=== PATIENT | female | born 1975 | race Caucasian/White ===

== ENCOUNTER 2018-11-06 09:56 | Emergency (ER) | payer SELFPAY ==
[~2018-11-06] VITALS: Ht 167.6 cm; Wt 149.7 kg
[~2018-11-06 09:56] MED LIST: BUTA1TAB55 PO; CLCX100C PO; CYCL10TA9 PO; DIFLUCAN; DULO30CA PO; HEARTBURN MED; HYDR-229 PO; HYDR-2890 PO; HYDR1TAB66 PO; LORA10TA7 PO; METO-354; PARO40TA47 PO; RANI25TA; SULF1TAB38 PO
[2018-11-06] MEDS ORDERED: RX-CYCLOBENZAPRINE 10 MG (FLEXERIL) TAB PPK#3 PO STA (10:59)
[2018-11-06] MEDS ORDERED: predniSONE 20 MG TAB PO ONE (11:00)
[2018-11-06] MEDS ORDERED: KETOROLAC 60 MG/2 ML VIAL IM ONE (11:00)
[2018-11-06] MEDS ORDERED: ORPHENADRINE 60 MG/2 ML (NORFLEX) AMP IM ONE (11:00)
[2018-11-06] MEDS ORDERED: PRD20T PO (11:02)
[2018-11-06] MEDS ORDERED: METH-313 PO (11:02)
--- NOTE | 2018-11-06 11:02 | ED Back Pain ---
General Chief Complaint: Back Problems Stated Complaint: BACK PAIN Nursing Triage Note: TO ROOM PER W/C C/O LOW BACK FOR 2 DAYS OTC MED ARE NOT HELPING Nursing Sepsis Screen: No Definite Risk Source of Information: Patient Exam Limitations: No Limitations History of Present Illness Date Seen by Provider: Nov 06, 2018 Time Seen by Provider: 11:00 Initial Comments To ER with midline nonradiating low back pain. States she has a history of fibromyalgia and degenerative disc disease. Denies any falls or trauma. Pain is worsened by movement. No loss of bowel or bladder control, no fevers or chills, no loss of sensation and genitals. Pain has been present for about 2 days. Location: Lumbar Spine Timing/Duration: 1-2 Days Severity: Moderate Method of Injury: Unknown Modifying Factors: Worse With Movement Associated Symptoms: lower back pain Allergies and Home Medications Allergies Coded Allergies: naproxen (Verified Allergy, Unknown, 07/31/07) Home Medications Methocarbamol 750 Mg Tablet, 750 MG PO Q4H PRN for PAIN-MODERATE Prescribed by: AJIT CRUZ on 11/06/18 110 Prednisone 20 Mg Tab, 40 MG PO DAILY Prescribed by: AJIT CRUZ on 11/06/18 1102 Patient Home Medication List Home Medication List Reviewed: Yes Review of Systems Constitutional: see HPI; No chills, No fever EENTM: see HPI Respiratory: no symptoms reported Cardiovascular: no symptoms reported Genitourinary: no symptoms reported Musculoskeletal: see HPI, back pain Skin: no symptoms reported Psychiatric/Neurological: No Symptoms Reported Past Pobslgn-Pzuflh-Twthwx Hx Patient Social History Alcohol Use: Denies Use Recreational Drug Use: No Smoking Status: Never a Smoker Recent Foreign Travel: No Contact w/Someone Who Travel: No Recent Infectious Disease Expo: No Recent Hopitalizations: Yes (vaginal deliveries) Past Medical History Surgeries: Yes (Therapeutic ) Respiratory: No Cardiac: No Neurological: No Reproductive Disorders: No Gastrointestinal: No Musculoskeletal: Yes Arthritis, Fibromyalgia, Chronic Back Pain Endocrine: Yes (obesity) Psychosocial: Yes Depression Blood Disorders: No Family Medical History No Pertinent Family Hx Physical Exam Vital Signs Vital Signs - First Documented 11/06/18 10:14 Temp 98.9 Pulse 80 Resp 18 B/P (MAP) 105/72 (83) Pulse Ox 98 O2 Delivery Room Air Capillary Refill : Less Than 3 Seconds Height, Weight, BMI Height: 5'6.00" Weight: 330lbs. oz. 149.006293wx; BMI Method:Stated General Appearance: No Apparent Distress, WD/WN, Obese HEENT: PERRL/EOMI, TMs Normal Neck: Full Range of Motion, Normal Inspection Respiratory: No Accessory Muscle Use, No Respiratory Distress Gastrointestinal: Non Tender, Soft Back: Normal Inspection, Vertebral Tenderness Neurologic/Psychiatric: Alert, Oriented x3 Skin: Normal Color, Warm/Dry Progress/Results/Core Measures Results/Orders My Orders Orders - AJIT CRUZ APRN Ketorolac Injection (Toradol Injection) (11/06/18 11:00) Orphenadrine Injection (Norflex Injectio (11/06/18 11:00) Prednisone Tablet (Deltasone Tablet) (11/06/18 11:00) Rx-Cyclobenzaprine Tablet (Rx-Flexeril T (11/06/18 10:59) Vital Signs/I&O 11/06/18 10:14 Temp 98.9 Pulse 80 Resp 18 B/P (MAP) 105/72 (83) Pulse Ox 98 O2 Delivery Room Air Blood Pressure Mean: 83 Departure Impression Primary Impression: Back pain Qualified Codes: M54.5 - Low back pain Disposition: 01 HOME, SELF-CARE Condition: Stable Departure-Patient Inst. Decision time for Depature: 11:01 Referrals: [facility] (PCP) Primary Care Physician Patient Instructions: Low Back Pain (DC) Add. Discharge Instructions: 1. Warm compresses to her low back 2. Follow-up with your doctor next week All discharge instructions reviewed with patient and/or family. Voiced understanding. Scripts Methocarbamol (Robaxin-750) 750 Mg Tablet 750 MG PO Q4H PRN for PAIN-MODERATE, #20 TAB Prov: AJIT CRUZ APRN 11/06/18 Prednisone (Prednisone) 20 Mg Tab 40 MG PO DAILY, #8 TAB Prov: AJIT CRUZ APRN 11/06/18 AJIT CRUZ APRN Nov 06, 2018 11:02
[2018-11-06 11:41] VITALS: BP 105/72
== END 2018-11-06 11:41 | disposition home or self-care (01) ==
LOC: EDUNIT# 09:56 → ER 09:57
DX: M54.5 Low back pain (principal); E66.9 Obesity, unspecified; F32.9 Major depressive disorder, single episode, unspecified; Z88.8 Allergy status to other drugs, medicaments and biological substances; Z79.52 Long term (current) use of systemic steroids; Z68.43 Body mass index [BMI] 50.0-59.9, adult
CPT/HCPCS: 96372; 99284

== ENCOUNTER → 2022-03-07 | Outpatient (CLI) | payer MEDICAID ==
[~2022-03-07] VITALS: Ht 160 cm; Wt 178.2 kg
[~2022-03-07] MED LIST changes: +BUPIVACAINE 0.25% 10 ML (SENSORCAINE) VIAL INJ ONE; +LIDOCAINE 1% INJ 20 ML VIAL INJ ONE; +LIDOCAINE 1% INJ 20 ML VIAL ONE; +METH-313 PO; +PRD20T PO; +methylPREDNISolone 40 MG/ML (DEPO MEDROL) VIAL IA ONE; +methylPREDNISolone 80 MG/ML (DEPO MEDROL) VIAL IA ONE
--- NOTE | 2022-03-07 15:36 | Diagnostic Imaging Report ---
INDICATION: Bilateral knee pain. Patient presents for fluoroscopically assisted bilateral knee steroid injection. DETAILS OF THE PROCEDURE: The patient was brought to the fluoroscopic suite and placed on the table in the supine position. The bilateral knees were prepped and draped in the usual sterile fashion. A small amount of 1% lidocaine was utilized for local anesthesia. A total of 1.5 minutes of fluoroscopic time was utilized. 22-gauge needles were advanced from an anterior approach into both knees. 80 mg of Depo-Medrol with 3 cc of 0.25% bupivacaine was injected into each knee. The needle was removed and hemostasis was obtained. The patient tolerated the procedure well and left the Department in stable condition. IMPRESSION: Successful fluoroscopically assisted steroid injection into the bilateral knees. Dictated by: Dictated on workstation # [id number]
== END ==
LOC: RAD 14:15
PROVIDERS: ATTEND Orthopaedic Surgery
DX: M25.561 Pain in right knee (principal); M25.562 Pain in left knee

== ENCOUNTER → 2022-03-30 | Outpatient (CLI) | payer MEDICAID ==
[~2022-03-30] MED LIST changes: -BUPIVACAINE 0.25% 10 ML (SENSORCAINE) VIAL INJ ONE; -LIDOCAINE 1% INJ 20 ML VIAL INJ ONE; -LIDOCAINE 1% INJ 20 ML VIAL ONE; -methylPREDNISolone 40 MG/ML (DEPO MEDROL) VIAL IA ONE; -methylPREDNISolone 80 MG/ML (DEPO MEDROL) VIAL IA ONE
== END ==
LOC: CARD 15:00
PROVIDERS: ATTEND Internal Medicine Cardiovascular Disease
DX: I11.9 Hypertensive heart disease without heart failure (principal); I25.10 Atherosclerotic heart disease of native coronary artery without angina pectoris
CPT/HCPCS: 93306

== ENCOUNTER 2022-04-20 18:42 | Inpatient (IN) | payer MEDICAID ==
[~2022-04-20] VITALS: Ht 160 cm; Wt 188.9 kg
[2022-04-20] MEDS ORDERED: NITROGLYCERIN 0.4 MG SL TABS BTL 25'S SL PRN (18:45)
[2022-04-20] MEDS ORDERED: HEParin 1000 UNIT/ML (10ML VIAL) FOR BOLUS IV ONE (18:53)
[2022-04-20 18:59] LABS: BASOPHILS # (AUTO) 0.1 10^3/uL (0.0-0.1); BASOPHILS % (AUTO) 0 % (0-10); EOSINOPHILS # (AUTO) 0.3 10^3/uL (0.0-0.3); EOSINOPHILS % (AUTO) 2 % (0-10); HEMATOCRIT 45 % (35-52); HEMOGLOBIN 13.8 g/dL (11.5-16.0); LYMPHOCYTES # (AUTO) 5.4 10^3/uL (1.0-4.0); LYMPHOCYTES % (AUTO) 42 % (12-44); MEAN CORPUSCULAR HEMOGLOBIN 27 pg (25-34); MEAN CORPUSCULAR HGB CONC 31 g/dL (32-36); MEAN CORPUSCULAR VOLUME 88 fL (80-99); MONOCYTES % (AUTO) 8 % (0-12); NEUTROPHILS # (AUTO) 5.9 10^3/uL (1.8-7.8); NEUTROPHILS % (AUTO) 47 % (42-75); PLATELET COUNT 293 10^3/uL (130-400); WHITE BLOOD COUNT 12.7 10^3/uL (4.3-11.0)
[2022-04-20] MEDS ORDERED: HEParin DRIP 25000 UNIT/500ML 500 ML IV ONE (19:00)
[2022-04-20] MEDS ORDERED: ONDANSETRON 4 MG/2 ML (SDV) Z0FRAN IVP ONE (19:00)
--- NOTE | 2022-04-20 19:04 | ED Chest Pain ---
General Chief Complaint: Chest Pain Stated Complaint: CHEST PAIN Nursing Triage Note: PT BROUGHT IN BY [facility] FROM [facility] WITH COMPLAINT OF CP. STATES STARTED THIS EVENING AROUND 6 PM. PT GIVEN NITRO AND ASA 324 BY EMS. STATES NITRO MADE HER NAUSEATED. Source: patient, EMS History of Present Illness Date Seen by Provider: Apr 20, 2022 Time Seen by Provider: 18:43 Initial Comments PT ARRIVES VIA EMS FROM [facility] PLACE PT BEGAN HAVING CHEST PAIN ABOUT 1815 WHILE LAYING IN BED RATES PAIN 7/10 AND DESCRIBES PRESSURE AND HEAVINESS AND FEELS LIKE SHE IS SUFFOCATING OR DROWNING. PAIN IS IN CENTER OF CHEST AND DOES NOT RADIATE NOTHING WORSENS OR IMPROVES PAIN C/O SHORTNESS OF BREATH + NAUSEA AND VOMITED X 1 NO SWEATS EMS GAVE 324 MG ASPIRIN, AND NTG X 1 NO RELIEF OF PAIN, AND STATES NAUSEA INCREASED WITH NTG PT STATES SHE HAS HAD SIMILAR PAIN, AND WAS DX WITH AFIB AND CHF IN 12/2018--HAD CARDIAC CATH AT THAT TIME, NO INTERVENTION DENIES HISTORY OF CO. PT HAS HISTORY OF CHF, HTN AND ATRIAL FIBRILLATION AND PT IS MORBIDLY OBESE PT HAS NOT HAD PM MEDICATIONS, TAKES ELIQUIS BID AT [facility] AROUND 1700, BUT VOMITED AFTERWARD PT JUST MOVED HERE IN DECEMBER FROM [place], [place] HAD MOTOR MECHANIC THERE, DR. RAZA HAD FIRST VISIT WITH DR. SULLIVAN TO ESTABLISH CARE ABOUT 2 WEEKS AGO. HAD ECHOCARDIOGRAM 03/30/22 FATHER HAD CO AGE 39 BROTHER ALSO WITH CAD <50 Y.O. PT HAS NOT HAD COVID OR FLU VACCINES PCP: RUBEN GALVAN WITH [facility] MOTOR MECHANIC: DR. SULLIVAN Allergies and Home Medications Allergies Coded Allergies: naproxen (Verified Allergy, Unknown, 07/31/07) Patient Home Medication List Home Medication List Reviewed: Yes Methocarbamol (Robaxin-750) 750 Mg Tablet, 750 MG PO Q4H PRN for PAIN-MODERATE Prescribed by: AJIT CRUZ on 11/06/18 110 Prednisone (Prednisone) 20 Mg Tab, 40 MG PO DAILY Prescribed by: AJIT CRUZ on 11/06/18 1102 Review of Systems Review of Systems Constitutional: no symptoms reported; No diaphoresis EENTM: No Symptoms Reported Respiratory: See HPI, Shortness of Air Cardiovascular: See HPI, Chest Pain; Denies Edema Gastrointestinal: See HPI; Denies Abdominal Pain; Nausea, Vomiting Genitourinary: No Symptoms Reported Musculoskeletal: no symptoms reported Skin: no symptoms reported Psychiatric/Neurological: No Symptoms Reported Endocrine: No Symptoms Reported Hematologic/Lymphatic: No Symptoms Reported Past Kydutez-Dqagiy-Ppwjpb Hx Patient Social History Tobacco Use?: No Use of E-Cig and/or Vaping dev: No Substance use?: No Alcohol Use?: No Pt feels they are or have been: No Immunizations Up To Date Influenza Vaccine Up-to-Date: No; Not Current First/Initial COVID19 Vaccinat: NO Second COVID19 Vaccination Odilon: NO Past Medical History Surgeries: Yes (Therapeutic ) Cardiac, Gallbladder Respiratory: No Cardiac: Yes (CHF) Atrial Fibrillation, Chronic Edema/Swelling, High Cholesterol, Hypertension Neurological: No Reproductive Disorders: No Genitourinary: No Gastrointestinal: No Musculoskeletal: Yes Degenerate Disk Disease, Arthritis, Fibromyalgia, Chronic Back Pain Endocrine: Yes (MORBID OBESITY) HEENT: No Cancer: No Psychosocial: Yes Anxiety, Depression Integumentary: No Blood Disorders: No Family Medical History No Pertinent Family Hx PAST SURGICAL HISTORY: -12/2018--CARDIAC CATH, NO INTERVENTION. DX AFIB AND CHF -09/2012--NORMAL SCREENING COLONOSCOPY BY DR. CHRISTOPHER Physical Exam Vital Signs Vital Signs - First Documented 04/20/22 18:44 Pulse 88 Resp 22 B/P (MAP) 107/70 (82) O2 Delivery Room Air Capillary Refill : Less Than 3 Seconds Height, Weight, BMI Height: 5'6.00" Weight: 330lbs. oz. 149.483787bn; 72.00 BMI Method:Stated General Appearance: No Apparent Distress, WD/WN, Obese (MORBIDLY OBESE) Neck: Normal Inspection Respiratory: Chest Non Tender, Normal Breath Sounds, No Accessory Muscle Use, No Respiratory Distress, Decreased Breath Sounds (IN BASES) Cardiovascular: Regular Rate, Rhythm (FREQUENT PVC'S), Systolic Murmur (FAINT MURMUR), Extra Beats Gastrointestinal: Non Tender, Soft Extremity: Normal Capillary Refill, No Pedal Edema (LEGS ARE VERY LARGE, BUT NO SWELLING FROM MID CALF DOWN TO TOES. MOTOR/SENSORY/VASCULAR INTACT. ), Other (HAS LARGE SCABBED WOUND/ULCER TO LEFT CONCEPCION, NO SIGNS OF INFECTION) Neurologic/Psychiatric: Alert, Oriented x3, No Motor/Sensory Deficits, Normal Mood/Affect, [employer] II-XII Norm as Tested Skin: Normal Color, Warm/Dry Progress/Results/Core Measures Results/Orders Lab Results Laboratory Tests Test 04/20/22 18:50 Range/Units White Blood Count 12.7 H 4.3-11.0 10^3/uL Red Blood Count 5.10 3.80-5.11 10^6/uL Hemoglobin 13.8 11.5-16.0 g/dL Hematocrit 45 35-52 % Mean Corpuscular Volume 88 80-99 fL Mean Corpuscular Hemoglobin 27 25-34 pg Mean Corpuscular Hemoglobin Concent 31 L 32-36 g/dL Red Cell Distribution Width 13.7 10.0-14.5 % Platelet Count 293 130-400 10^3/uL Mean Platelet Volume 10.0 9.0-12.2 fL Immature Granulocyte % (Auto) 1 % Neutrophils (%) (Auto) 47 42-75 % Lymphocytes (%) (Auto) 42 12-44 % Monocytes (%) (Auto) 8 0-12 % Eosinophils (%) (Auto) 2 0-10 % Basophils (%) (Auto) 0 0-10 % Neutrophils # (Auto) 5.9 1.8-7.8 10^3/uL Lymphocytes # (Auto) 5.4 H 1.0-4.0 10^3/uL Monocytes # (Auto) 1.0 0.0-1.0 10^3/uL Eosinophils # (Auto) 0.3 0.0-0.3 10^3/uL Basophils # (Auto) 0.1 0.0-0.1 10^3/uL Immature Granulocyte # (Auto) 0.1 0.0-0.1 10^3/uL Prothrombin Time 13.4 12.2-14.7 SEC INR Comment 1.0 0.8-1.4 Activated Partial Thromboplast Time 27 24-35 SEC D-Dimer 0.40 0.00-0.49 UG/ML Sodium Level 140 135-145 MMOL/L Potassium Level 4.2 3.6-5.0 MMOL/L Chloride Level 108 H 98-107 MMOL/L Carbon Dioxide Level 17 L 21-32 MMOL/L Anion Gap 15 H 5-14 MMOL/L Blood Urea Nitrogen 20 H 7-18 MG/DL Creatinine 1.01 0.60-1.30 MG/DL Estimat Glomerular Filtration Rate 69 BUN/Creatinine Ratio 20 Glucose Level 136 H 70-105 MG/DL Calcium Level 9.2 8.5-10.1 MG/DL Corrected Calcium 9.3 8.5-10.1 MG/DL Magnesium Level 2.4 1.6-2.4 MG/DL Total Bilirubin 0.3 0.1-1.0 MG/DL Aspartate Amino Transf (AST/SGOT) 12 5-34 U/L Alanine Aminotransferase (ALT/SGPT) 17 0-55 U/L Alkaline Phosphatase 100 40-136 U/L Total Creatine Kinase 69 29-168 U/L Creatine Kinase MB 1.2 <6.6 NG/ML Myoglobin 60.1 10.0-92.0 NG/ML Troponin I < 0.028 <0.028 NG/ML B-Type Natriuretic Peptide < 10.0 <100.0 PG/ML Total Protein 7.4 6.4-8.2 GM/DL Albumin 3.9 3.2-4.5 GM/DL Amylase Level 31 25-125 U/L Lipase 36 8-78 U/L Serum Test, Qualitative NEGATIVE NEGATIVE My Orders Orders - BARBIE ANN DO Cbc With Automated Diff (04/20/22 18:44) Magnesium (04/20/22 18:44) Chest 1 View, Ap/Pa Only (04/20/22 18:44) Ekg Tracing (04/20/22 18:44) Comprehensive Metabolic Panel (04/20/22 18:44) Myoglobin Serum (04/20/22 18:44) Protime With Inr (04/20/22 18:44) Partial Thromboplastin Time (04/20/22 18:44) O2 (04/20/22 18:44) Monitor-Rhythm Ecg Trace Only (04/20/22 18:44) Ed Iv/Invasive Line Start (04/20/22 18:44) Creatine Kinase (04/20/22 18:44) Creatine Kinase Mb (04/20/22 18:44) Lipase (04/20/22 18:44) Amylase (04/20/22 18:44) Bnp Leon (04/20/22 18:44) Fibrin Degradation Products (04/20/22 18:44) Troponin I Leon (04/20/22 18:44) Nitroglycerin 0.4 Mg Btl 25's (Nitrostat (04/20/22 18:45) Hcg,Qualitative Serum (04/20/22 18:44) Ondansetron Injection (Zofran Injectio (04/20/22 19:00) Ekg Tracing (04/20/22 18:50) Catheter(Urinary) Insert & Ass 03,15 (04/20/22 18:50) Heparin Drip 92716 Unit/500ml (Heparin (04/20/22 19:00) Heparin (Bolus Per Protocol) (Heparin (B (04/20/22 18:53) Covid 19 Inhouse Test (04/20/22 18:53) Influenza A And B By Pcr (04/20/22 18:53) Isolation Central Supply Req (04/20/22 18:53) Medications Given in ED Current Medications Medications Dose Ordered Sig/Susan Route Start Time Stop Time Status Last Admin Dose Admin Heparin Sodium (Porcine) HEPARIN BOLUS ACS PROTOC... 1853 ONCE IV 04/20/22 18:53 04/20/22 18:55 DC 04/20/22 18:57 5,000 UNIT Vital Signs/I&O 04/20/22 18:44 Pulse 88 Resp 22 B/P (MAP) 107/70 (82) O2 Delivery Room Air Blood Pressure Mean: 82 Progress Progress Note : Progress Note GIVEN ZOFRAN GIVEN HEPARIN BOLUS AND PLACED ON HEPARIN DRIP GIVEN MORPHINE FOR PAIN COVID AND FLU TESTING DONE. NO DETERIORATION IN PT'S CONDITION DURING ER STAY Initial ECG Impression Date: Apr 20, 2022 Initial ECG Impression Time: 18:48 Initial ECG Rate: 88 Initial ECG Rhythm: Normal Sinus (MULTIFOCAL PVC'S) Initial ECG Impression: Acute CO (INFERIOR) Initial ECG Comparisson: No Previous ECG Available EKG : EKG Time: 18:48 Rate: 88 Diagnostic Imaging Comments CXR--NO ACUTE PROCESS, PER RADIOLOGIST REPORT AT Reviewed: Reviewed by Me Departure Communication (Admissions) 1850--SPOKE WITH DR. JEAN, MOTOR MECHANIC, ADVISES TO CALL IN COLORS CUSTODIAN. DERMATOLOGICAL SURGEON NOTIFIED. 1923--DR. JEAN HERE. WANTS REPEAT EKG DONE, BUT UNABLE TO COMPLETE BEFORE PT IS TAKEN TO COLORS CUSTODIAN. 1925--COLORS CUSTODIAN TEAM HERE. Impression Primary Impression: STEMI (ST elevation myocardial infarction) Additional Impressions: History of atrial fibrillation Hx of congestive heart failure HX OF HTN Morbid obesity Disposition: ADMITTED INPATIENT (TO COLORS CUSTODIAN) Condition: Stable Admissions Decision to Admit Reason: Admit from ER (General) (TO COLORS CUSTODIAN) Decision to Admit/Date: Apr 20, 2022 Time/Decision to Admit Time: 18:51 Departure-Patient Inst. Referrals: NO,LOCAL PHYSICIAN (PCP/Family) Primary Care Physician BARBIE ANN DO Apr 20, 2022 19:04
[2022-04-20 19:12] LABS: PROTHROMBIN TIME PATIENT 13.4 SEC (12.2-14.7)
[2022-04-20] MEDS ORDERED: morphine INJ 4 MG/ML 1 ML (VIAL/SYRINGE) IVP ONE (19:15)
[2022-04-20] MEDS ORDERED: morphine INJ 10 MG/ML 1ML (SYR OR VIAL) ONE (19:15)
[2022-04-20] MEDS ORDERED: HEParin (CATH LAB) 2,000 ML IV ONE (19:17)
[2022-04-20] MEDS ORDERED: MIDAZOLAM 5 MG/5 ML (VERSED) VIAL ONE (19:17)
[2022-04-20] MEDS ORDERED: LIDOCAINE 1% INJ 20 ML VIAL ONE (19:17)
[2022-04-20] MEDS ORDERED: HEParin 1000 UNIT/ML (10ML VIAL) FOR BOLUS ONE (19:17)
[2022-04-20] MEDS ORDERED: fentaNYL INJ 100 MCG/2 ML AMP ONE (19:17)
[2022-04-20] MEDS ORDERED: EPTIFIBATIDE BOLUS 20 ML IV ONE (19:18)
[2022-04-20] MEDS ORDERED: EPTIFIBATIDE DRIP 100 ML IV ONE (19:18)
[2022-04-20] MEDS ORDERED: NITRO DRIP 25000 MCG/D5W 0 ML IV ONE (19:18)
[2022-04-20] MEDS ORDERED: NS IV 1000 ML 1,000 ML ONE (19:18)
[2022-04-20 19:22] LABS: ALBUMIN 3.9 GM/DL (3.2-4.5); BILIRUBIN,TOTAL 0.3 MG/DL (0.1-1.0); CALCIUM 9.2 MG/DL (8.5-10.1); CREATININE SERUM 1.01 MG/DL (0.60-1.30); MAGNESIUM 2.4 MG/DL (1.6-2.4); POTASSIUM 4.2 MMOL/L (3.6-5.0); TOTAL PROTEIN 7.4 GM/DL (6.4-8.2)
[2022-04-20 19:29] LABS: CREATINE KINASE MB 1.2 NG/ML (<6.6)
--- NOTE | 2022-04-20 19:29 | Diagnostic Imaging Report ---
Indication: Chest pain Portable chest 7:20 PM Heart size and pulmonary vascularity are normal. Lungs are clear. There are no effusions or pneumothoraces. IMPRESSION: No acute abnormalities in the chest Dictated by: Dictated on workstation # [id number]
[2022-04-20 19:30] VITALS: BP 125/98
--- NOTE | 2022-04-20 19:37 | Cardiology History & Physical ---
HPI-Cardiology Cardiology H&P Date of Admission 04/20/22 Primary Care Physician Attending Physician: Harsh Giron MD, MA [facility] CCDS Attending Physician No,Local Physician Consulting Physician [facility] CC: Chest pain 46 woman with sudden onset of chest pain at approx 6 pm today: midsternal, pressure-like, nonradiating, associated with feeling of anxiety, improved in the ER with iv morphine, not experienced before, w/o radiation. Chronic, exertional shortness of breath. No palp or syncope. Chronic, bilateral leg swelling. No syncope. H/o palpitations previously diagnosed as PAF Review of Systems-Cardiology Review of Systems Constitutional: malaise, tiredness; No weight loss, No weight gain Eyes: No vision change Ears/Nose/Throat: No ear discharge, No nasal drainage, No recent hearing loss Respiratory: As described under HPI Cardiovascular: As described under HPI Gastrointestinal: No diarrhea, No nausea, No vomiting Genitourinary: No dysuria, No hematuria, No urine frequency changes Musculoskeletal: back pain (chronic) Skin: No rash; ulcerations (chronic leg ulcerations) Psychiatric/Neurological: No seizure, No focal weakness, No syncope Hematologic: No bleeding abnormalities EWF-Btbqfq-Bevisl Hx Patient Social History Have you traveled recently?: No Alcohol Use?: No Pt feels they are or have been: No Past Medical History PMH As described under Assessment. Family Medical History Family Medical History: Family h/o early CAD (fathter had AK in late 30s to early 40s) Allergies and Home Medications Allergies Coded Allergies: naproxen (Verified Allergy, Unknown, 07/31/07) Patient Home Medication List Home Medication List Reviewed: Yes Methocarbamol (Robaxin-750) 750 Mg Tablet, 750 MG PO Q4H PRN for PAIN-MODERATE Prescribed by: AJIT CRUZ on 11/06/18 1102 Prednisone (Prednisone) 20 Mg Tab, 40 MG PO DAILY Prescribed by: AJIT CRUZ on 11/06/18 1102 Physical Exam-Cardiology Physical Exam Vital Signs/I&O 04/20/22 04/20/22 18:44 19:21 Pulse 88 Resp 22 B/P (MAP) 107/70 (82) O2 Delivery Room Air Nasal Cannula O2 Flow Rate 2.00 Capillary Refill : Less Than 3 Seconds Constitutional: AAO x 3, well-developed, well-nourished HEENT: EOMI, hearing is well preserved; No xanthelasmas are seen Neck: carotid pulses are 2 + bilaterally Respiratory: No accessory muscle use; other (fair air entry, diminished at the bases) Cardiovascular: regular rate-rhythm, S1 and S2, systolic murmur (soft JAIRO at card base) Gastrointestinal: No tender; soft; No guarding, No rebound; audible bowel sounds Extremities: swelling (moderate, bilat leg edema); No clubbing, No cyanosis Skin: warm/dry, ulcerations (approx 4" tommie, maplike, superficial ulceration on the outer aspect of the L lower leg) Data Review Labs Laboratory Tests 04/20/22 18:50: White Blood Count 12.7H, Red Blood Count 5.10, Hemoglobin 13.8, Hematocrit 45, Mean Corpuscular Volume 88, Mean Corpuscular Hemoglobin 27, Mean Corpuscular Hemoglobin Concent 31L, Red Cell Distribution Width 13.7, Platelet Count 293, Mean Platelet Volume 10.0, Immature Granulocyte % (Auto) 1, Neutrophils (%) (Auto) 47, Lymphocytes (%) (Auto) 42, Monocytes (%) (Auto) 8, Eosinophils (%) (Auto) 2, Basophils (%) (Auto) 0, Neutrophils # (Auto) 5.9, Lymphocytes # (Auto) 5.4H, Monocytes # (Auto) 1.0, Eosinophils # (Auto) 0.3, Basophils # (Auto) 0.1, Immature Granulocyte # (Auto) 0.1, Prothrombin Time 13.4, INR Comment 1.0, Activated Partial Thromboplast Time 27, D-Dimer 0.40, Sodium Level 140, Pota ssium Level 4.2, Chloride Level 108H, Carbon Dioxide Level 17L, Anion Gap 15H, Blood Urea Nitrogen 20H, Creatinine 1.01, Estimat Glomerular Filtration Rate 69, BUN/Creatinine Ratio 20, Glucose Level 136H, Calcium Level 9.2, Corrected Calcium 9.3, Magnesium Level 2.4, Total Bilirubin 0.3, Aspartate Amino Transf (AST/SGOT) 12, Alanine Aminotransferase (ALT/SGPT) 17, Alkaline Phosphatase 100, Total Creatine Kinase 69, Creatine Kinase MB 1.2, Myoglobin 60.1, Troponin I < 0.028, B-Type Natriuretic Peptide < 10.0, Total Protein 7.4, Albumin 3.9, Amylase Level 31, Lipase 36, Serum Test, Qualitative NEGATIVE 04/20/22 19:03: Laboratory Tests 04/20/22 18:50 A/P-Cardiology Assessment/Admission Diagnosis ST elevation in inf leads suggestive of ac inf wall STEMI PAF, by history Hypertension, by history Morbid obesity: BMI approx 73 Hyperlipidemia, treated with statin Admission Status: Inpatient Order (span 2 midnights) Reason for Inpatient Admission: Ac AK Discussion and Recomendations * Given ongoing symptoms, ECG suggestive of acute inf wall STEMI, and multiple cor risk factors, we recommend urgent card cath * I discussed the rationale, procedure, risks, benefits, potential complications, and alternatives of card cath and possible ad hoc cor intervention with her in detail. She understands and provides informed consent * Further recs to be based on the results of card cath Clinical Quality Measures AMI/AHF: ASA po Prior to arrival: Yes HARSH GIRON MD FACP FAC CCDS Apr 20, 2022 19:37
[2022-04-20] MEDS ORDERED: EPTIFIBATIDE BOLUS 10 ML IV ONE (19:59)
[2022-04-20] MEDS ORDERED: CLOPIDOGREL 300 MG (PLAVIX) TABLET PO ONE (20:14)
[2022-04-20] MEDS ORDERED: PATIENT MAY USE OWN MEDS, ALL PO SCH (20:45)
[2022-04-20] MEDS: ONDANSETRON 4 MG/2 ML (SDV) Z0FRAN IVP PRN (21:20)
[2022-04-20] MEDS ORDERED: ATROPINE INJECTION 1 MG/10 ML SYR (ABBOTT) IV ONE (22:30)
[2022-04-20] MEDS ORDERED: fentaNYL INJ 100 MCG/2 ML AMP IVP ONE (22:30)
[2022-04-20] MEDS: meTOprolol TARTRATE 25 MG (LOPRESSOR) TABLET PO SCH (22:45)
[2022-04-20] MEDS: NS IV 1000 ML 1,000 ML IV SCH (22:45)
[2022-04-21] MEDS: ACETAMINOPHEN 325 MG TABLET PO PRN ×3 (01:48→20:24)
--- NOTE | 2022-04-21 04:20 | CARDIAC CATHETERIZATION ---
DATE OF SERVICE: 04/20/2022 The patient is a 46-year-old lady, who developed chest pain about an hour and a half prior to presentation to the emergency room. In the emergency room, she was found to have ST elevation in the inferior leads. Urgent cardiac catheterization was carried out after having obtained an informed consent for cardiac catheterization and possible ad hoc coronary intervention. DESCRIPTION OF PROCEDURE: She was brought to the cardiac catheterization laboratory. Right groin was prepared and draped in the usual sterile fashion. Lidocaine 1% was used for local anesthesia. Modified Seldinger technique was used to advance a 6-Ghanaian sheath in the right femoral artery. The sheath was then exchanged over a wire for a long 6-Ghanaian sheath. This was done because the regular sheath has to traverse a significant amount of subcutaneous tissue to get to the femoral artery and was just barely into the femoral artery. We then used the long sheath to carry out diagnostic angiography and percutaneous intervention. PERCUTANEOUS INTERVENTION TO THE RIGHT CORONARY ARTERY: We used a 6-Ghanaian JR4 guide catheter with side holes to engage the right coronary artery. We advanced a ChoICE floppy wire to the posterior descending branch of the right coronary artery, which was occluded in its mid portion. We were able to cross the lesion with the wire. We carried out balloon angioplasty with 2.0 x 20 mm balloon. This balloon was removed and we then stented the mid and distal posterior descending branch, right up to its terminal bifurcation, but not involving the terminal bifurcation. Stenting was done with Skypoint 2.5 x 12 mm stent. It was deployed at 9 atmospheres. The balloon was then pulled back to the proximal 3/4 of the stent and inflated to 20 atmospheres. This was done because the distal part of the standard segment is slightly small caliber than the proximal part of the standard segment. Subsequent angiography revealed 0% residual stenosis. RAFA flow improved from 0 to 3. Stenosis improved from 100% to 0% residual. CORONARY ANGIOGRAPHY: Following intervention, coronary angiography and intervention to the right coronary, we carried out angiography of the left coronary system with a 6-Ghanaian JL4 catheter. We then used a 6-Ghanaian pigtail catheter to carry out left heart catheterization, left ventricular angiography. At the end of the procedure, the long sheath was exchanged for a short sheath and we carried out angiography of the right femoral artery, but the site of sheath insertion did not appear suitable for device closure. We then replaced the short sheath over a wire for the 6-Ghanaian long sheath again and the sheath was sutured in place and the patient was transferred to the floor for manual sheath removal. HEMODYNAMICS: Left ventricular end-diastolic pressure following coronary angiography was 18 mmHg. There was no significant pressure gradient on pullback across the aortic valve. Ascending aortic pressure was 125/71 with a mean of 90 mmHg. CORONARY ANGIOGRAPHY: Left main coronary artery is free of significant disease. Left anterior descending artery is free of significant disease. Left circumflex artery is nondominant and free of significant disease. Right coronary artery is large and dominant and had a complete occlusion of the mid to distal portion of the posterior descending branch to which successful percutaneous intervention was carried out. Following deployment of Skypoint 2.5 x 12 mm stent to the distal vessel. There is no significant residual stenosis and flow throughout the vessel is normal. LEFT VENTRICULAR ANGIOGRAPHY: Left ventricular angiography was carried out in the right anterior oblique projection. Global left ventricular systolic function is well preserved. Left ventricular ejection fraction is 55% to 60%. CONCLUSIONS: 1. Coronary artery disease primarily consisting of distal occlusion of the posterior descending branch of the RCA to which successful percutaneous intervention was carried out. Following deployment of Skypoint 2.5 x 12 mm stent, there is no significant residual stenosis and the distal flow improved from RAFA 0 to RAFA 3. The rest of the coronary vessels do not exhibit significant disease. 2. Normal global left ventricular systolic function with ejection fraction approximately 55% to 60%. 3. Elevated left ventricular end-diastolic pressure (18 mmHg). DISCUSSION AND RECOMMENDATIONS: She is being admitted to the hospital. Aspirin and Plavix have been added to the regimen. Statin is being continued. Beta blockers will be used as tolerated. Eliquis will be reinitiated tomorrow. Further recommendation will be based on her hospital course. Job ID: [id number] DocumentID: [id number] Dictated Date: 04/20/2022 21:02:54 Instructor Bridge Date: 04/21/2022 04:19:12 Dictated By: TAMMI JEAN MD, MA, FACP, FACC, MTDD
[2022-04-21 05:02] LABS: HEMOGLOBIN 12.9 g/dL (11.5-16.0); WHITE BLOOD COUNT 10.6 10^3/uL (4.3-11.0)
[2022-04-21 05:03] LABS: BASOPHILS % (AUTO) 0 % (0-10); EOSINOPHILS # (AUTO) 0.1 10^3/uL (0.0-0.3); EOSINOPHILS % (AUTO) 1 % (0-10); HEMATOCRIT 42 % (35-52); LYMPHOCYTES # (AUTO) 2.2 10^3/uL (1.0-4.0); LYMPHOCYTES % (AUTO) 21 % (12-44); MEAN CORPUSCULAR HEMOGLOBIN 27 pg (25-34); MEAN CORPUSCULAR HGB CONC 31 g/dL (32-36); MEAN CORPUSCULAR VOLUME 88 fL (80-99); MONOCYTES # (AUTO) 0.7 10^3/uL (0.0-1.0); MONOCYTES % (AUTO) 7 % (0-12); NEUTROPHILS # (AUTO) 7.5 10^3/uL (1.8-7.8); NEUTROPHILS % (AUTO) 71 % (42-75); PLATELET COUNT 262 10^3/uL (130-400)
[2022-04-21 05:16] LABS: ALBUMIN 3.6 GM/DL (3.2-4.5); POTASSIUM 4.3 MMOL/L (3.6-5.0)
[2022-04-21 05:17] LABS: CALCIUM 8.8 MG/DL (8.5-10.1)
[2022-04-21 05:19] LABS: TOTAL PROTEIN 6.6 GM/DL (6.4-8.2)
[2022-04-21] MEDS: KCL 20 MEQ TAB (K-DUR) PO SCH (05:19)
[2022-04-21] MEDS: POTASSIUM CL 10MEQ/50ML IVPB 50 ML IV SCH (05:19)
[2022-04-21 05:20] LABS: BILIRUBIN,TOTAL 0.3 MG/DL (0.1-1.0)
[2022-04-21 05:22] LABS: CREATININE SERUM 0.85 MG/DL (0.60-1.30); PHOSPHORUS 3.8 MG/DL (2.3-4.7)
[2022-04-21 05:25] LABS: MAGNESIUM 2.3 MG/DL (1.6-2.4)
[2022-04-21] MEDS: MAGNESIUM 1 GM/100 ML IVPB 100 ML IV SCH (05:28)
[2022-04-21] MEDS: NS IV 1000 ML 1,000 ML IV SCH (05:36)
[2022-04-21] MEDS: meTOprolol TARTRATE 25 MG (LOPRESSOR) TABLET PO SCH ×2 (08:15→20:24)
[2022-04-21] MEDS: CLOPIDOGREL 75 MG (PLAVIX) TABLET PO SCH (08:15)
[2022-04-21] MEDS: APIXABAN 5 MG (ELIQUIS) TABLET PO SCH ×2 (08:15→20:24)
--- NOTE | 2022-04-21 08:22 | Cardiology Progress Note ---
Subjective Date Seen by Provider: Apr 21, 2022 Time Seen by Provider: 08:18 Subjective/Events-last exam Patient was seen at bedside, laying down comfortably, denied any chest pain No shortness of breath, having wound on her left leg. Review of Systems General: No Chills, No Night Sweats, No Fatigue, No Malaise, No Appetite, No Other HEENT: No Head Aches, No Visual Changes, No Eye Pain, No Ear Pain, No Dysphasia, No Sinus Congestion, No Post Nasal Drip, No Sore Throat, No Other Pulmonary: No Dyspnea, No Cough, No Pleuritic Chest Pain, No Other Cardiovascular: No: Chest Pain, Palpitations, Orthopnea, Paroxysmal Noc. Dys pnea, Edema, Lt Headedness, Other Objective-Cardiology Exam Last Set of Vital Signs Vital Signs 04/21/22 04/21/22 04:03 07:00 Temp 36.5 Pulse 94 Resp 12 B/P (MAP) 130/84 Pulse Ox 99 O2 Delivery Nasal Cannula O2 Flow Rate 2.00 I&O Intake and Output 04/21/22 00:00 Intake Total 0 ml Output Total 325 ml Balance -325 ml Intake Oral 0 ml Output Urine Total 325 ml Daily Weight Change No General: Alert, Oriented X3, Cooperative HEENT: Atraumatic, PERRLA Neck: Supple, No JVD, No Thyromegaly Lungs: Clear to Auscultation, Normal Air Movement Heart: Regular Rate, Normal S1, Normal S2, No Murmurs Abdomen: Normal Bowel Sounds, Soft, No Tenderness, No Hepatosplenomegaly, No Masses Extremities: No Clubbing, No Cyanosis, No Edema, Normal Pulses, No Tenderness/Swelling Skin: No Rashes, No Breakdown, No Significant Lesion Neuro: Normal Gait, Normal Speech, Strength at 5/5 X4 Ext, Normal Tone, Sensation Intact Psych/Mental Status: Mental Status NL, Mood NL Results Lab Laboratory Tests 04/20/22 18:50 04/21/22 04:50 A/P-Cardiology Admission Diagnosis Acute ST elevation myocardial infarction Coronary artery disease Paroxysmal atrial fibrillation Hyperlipidemia Assessment/Plan Coronary artery disease, status post acute ST elevation myocardial infarction involving the inferior wall Emergency cardiac catheterization was carried out by Dr. Giron with stenting of the PDA with excellent results. Continue on aspirin and Plavix Nonhealing wound on the left leg, diminished dorsalis pedis pulse but palpable. Questionable peripheral arterial disease, I will evaluate arterial ultrasound Consult Dr. Frias Paroxysmal atrial fibrillation, currently in sinus rhythm, maintained on Eliquis. Maintained on metoprolol. 2D echo was done on March 30, 2022 showing normal LV size and function, EF 55 to 60%, PA pressure 30 to 35 mmHg Hyperlipidemia, maintained on rosuvastatin 10 mg daily, LDL 164, total cholesterol 133. Continue to monitor Hypertension, tolerating current medication well. Continue to monitor Return to joint disease, bilateral knee pain. BMI 75. Patient is working on weight loss, she has used phentermine in the past which resulted in atrial fibrillation. We discussed weight loss and exercise and possible referral for bariatric surgery. Twelve-lead EKG was done in the office showing sinus rhythm with no significant abnormality, low voltage. Family history of heart disease and hypertension. CORINNE SULLIVAN MD Apr 21, 2022 08:22
[2022-04-21] MEDS: ASPIRIN 81 MG CHEW (CHILDREN'S ASA) PO SCH (09:11)
--- NOTE | 2022-04-21 10:38 | Diagnostic Imaging Report ---
PROCEDURE: US Bilateral lower extremity arterial. TECHNIQUE: Multiple Real-time grayscale images are obtained through both lower extremity arterial systems with color Doppler imaging and color Doppler spectral analysis. INDICATION: Nonhealing wound in the lower extremities. Hypertension. COMPARISON: None available. FINDINGS: The examination is limited due to patient's very large body habitus resulting in suboptimal visualization of numerous arteries. Allowing for this, color Doppler imaging shows patency of the bilateral common femoral, superficial femoral, popliteal, posterior tibial, and dorsalis pedis arteries. There are no elevated peak systolic velocities that would indicate hemodynamically significant stenosis. Above the knee, there are predominantly triphasic waveforms on both sides. Below the knee, monophasic waveforms are present. IMPRESSION: No arterial occlusion or focal hemodynamically significant stenosis in the bilateral lower extremities. Dictated by: Dictated on workstation # [id number]
[2022-04-21] MEDS ORDERED: CHOL12502 PO (10:48)
[2022-04-21] MEDS ORDERED: METO50TA7 PO (10:48)
[2022-04-21] MEDS ORDERED: FURO40TA4 PO (10:48)
[2022-04-21] MEDS ORDERED: POTA-51 PO (10:48)
[2022-04-21] MEDS ORDERED: ROSU10TA28 PO (10:48)
[2022-04-21] MEDS ORDERED: MAGN250T13 PO (10:48)
[2022-04-21] MEDS ORDERED: LISI5TAB20 PO (10:48)
[2022-04-21] MEDS ORDERED: GABA300C PO (10:48)
[2022-04-21] MEDS ORDERED: HYDR-700 PO (10:48)
[2022-04-21] MEDS ORDERED: TOPI50TA13 PO (10:48)
[2022-04-21] MEDS ORDERED: DULO60CA59 PO (10:48)
[2022-04-21] MEDS ORDERED: APIX5TAB PO (10:48)
--- NOTE | 2022-04-21 11:37 | Tele-ICU Progress Note ---
Subjective Date Seen by a Provider: Apr 21, 2022 Time Seen by a Provider: 11:36 Subjective/Events-last exam (Tele-ICU Physician , Progress Note ) Available chart/ vitals / labs / Images reviewed Video assessment done using teleICU camera, rest of exam as per RN Discussed with RN , EXAM PER RN Events overnight : Afebrile FiO2 - I/O = Drips: Pressors: , hemodynamically stable Consultants: Hospital course: (04/20) 46y/F in with stemi, s/p CCL , stent x1 RCA A/P stemi, s/p CCL , stent x1 RCA -2D echo was done on March 30, 2022 showing normal LV size and function, EF 55 to 60%, PA pressure 30 to 35 mmHg PAF - in sinus -maintained on Eliquis. Leg wound - as per wound care MD , arterial pending - off anbx BMI 75 VTE Prophylaxis: eliquis Stress Ulcer Prophylaxis: na Plans in collaboration with bedside consultants and IM MDs. Discussed with RN to reach out if any questions or concerns A total of 22 minutes of critical care time was devoted to this patient today, required to treat and/or prevent further deterioration of critical care condition ( as above) . Sepsis Event Evaluation Height, Weight, BMI Height: 5'6.00" Weight: 330lbs. oz. 149.657110ml; 75.82 BMI Method:Stated Exam Exam Patient acknowledged, consented, and participated in this virtual visit which was conducted using real time audio/video Vital Signs Date Time Temp Pulse Resp B/P (MAP) Pulse Ox O2 Delivery O2 Flow Rate FiO2 04/21/22 11:00 88 19 136/72 93 Nasal Cannula 2.00 04/21/22 10:00 91 18 129/93 94 Nasal Cannula 2.00 04/21/22 09:00 97 20 129/71 91 Nasal Cannula 2.00 04/21/22 08:10 98 Room Air 04/21/22 08:00 94 22 118/84 96 Nasal Cannula 2.00 04/21/22 08:00 36.3 04/21/22 07:00 94 04/21/22 07:00 94 12 130/84 99 Nasal Cannula 2.00 04/21/22 06:00 89 20 157/95 94 Nasal Cannula 2.00 04/21/22 05:00 82 19 152/76 94 Nasal Cannula 2.00 04/21/22 04:03 36.5 04/21/22 04:00 Nasal Cannula 2.00 04/21/22 04:00 85 20 165/97 97 Nasal Cannula 2.00 04/21/22 03:00 89 15 175/104 96 Nasal Cannula 2.00 04/21/22 02:00 88 18 155/89 98 Nasal Cannula 2.00 04/21/22 01:00 81 04/21/22 01:00 81 20 127/82 99 Nasal Cannula 2.00 04/21/22 00:00 82 17 116/81 99 Nasal Cannula 2.00 04/21/22 00:00 Nasal Cannula 2.00 04/20/22 23:54 36.2 04/20/22 23:00 84 15 136/85 100 Nasal Cannula 2.00 04/20/22 22:30 92 16 134/93 99 Nasal Cannula 2.00 04/20/22 22:00 85 16 119/68 99 Nasal Cannula 2.00 04/20/22 21:45 84 19 134/80 99 Nasal Cannula 2.00 04/20/22 21:30 84 18 120/82 100 Nasal Cannula 2.00 04/20/22 21:15 85 18 115/80 98 Nasal Cannula 2.00 04/20/22 21:00 83 24 80/63 97 Nasal Cannula 2.00 04/20/22 20:55 86 04/20/22 20:55 35.9 04/20/22 20:52 95 Nasal Cannula 2.00 04/20/22 19:30 88 15 125/98 94 Nasal Cannula 2.00 04/20/22 19:21 Nasal Cannula 2.00 04/20/22 18:44 88 22 107/70 (82) Room Air I & O 04/21/22 07:00 Intake Total 250 ml Output Total 1050 ml Balance -800 ml Height & Weight Height: 5'6.00" Weight: 330lbs. oz. 149.561587za; 75.82 BMI Method:Stated General Appearance: No Apparent Distress, WD/WN, Obese (MORBIDLY OBESE) Neck: Normal Inspection Respiratory: Chest Non Tender, Normal Breath Sounds, No Accessory Muscle Use, No Respiratory Distress, Decreased Breath Sounds (IN BASES) Cardiovascular: Regular Rate, Rhythm (FREQUENT PVC'S), Systolic Murmur (FAINT MURMUR), Extra Beats Capillary Refill: Less Than 3 Seconds Extremity: Normal Capillary Refill, No Pedal Edema (LEGS ARE VERY LARGE, BUT NO SWELLING FROM MID CALF DOWN TO TOES. MOTOR/SENSORY/VASCULAR INTACT. ), Other (HAS LARGE SCABBED WOUND/ULCER TO LEFT CONCEPCION, NO SIGNS OF INFECTION) Neurologic/Psychiatric: Alert, Oriented x3, No Motor/Sensory Deficits, Normal Mood/Affect, kitchen bath designer II-XII Norm as Tested Skin: Normal Color, Warm/Dry Results Lab Laboratory Tests 04/20/22 18:50 04/21/22 04:50 Assessment/Plan Assessment/Plan ` TARAH MADRID MD Apr 21, 2022 11:36
--- NOTE | 2022-04-21 11:55 | Tele-ICU Progress Note ---
Subjective Date Seen by a Provider: Apr 21, 2022 Time Seen by a Provider: 11:54 Subjective/Events-last exam (Tele-ICU Physician , Progress Note ) Available chart/ vitals / labs / Images reviewed Video assessment done using teleICU camera, rest of exam as per RN Discussed with RN , EXAM PER RN Events overnight : Afebrile FiO2 - I/O = Drips: Pressors: , hemodynamically stable Consultants: Hospital course: (04/20) 46y/F in with stemi, s/p CCL , stent x1 RCA A/P stemi, s/p CCL , stent x1 RCA -2D echo was done on March 30, 2022 showing normal LV size and function, EF 55 to 60%, PA pressure 30 to 35 mmHg PAF - in sinus -maintained on Eliquis. Leg wound - as per wound care MD , arterial pending - off anbx BMI 75 - monitor for hypoxix at night - ? at risk for OHS/GURVINDER VTE Prophylaxis: eliquis Stress Ulcer Prophylaxis: na Plans in collaboration with bedside consultants and IM MDs. Discussed with RN to reach out if any questions or concerns A total of 22 minutes of critical care time was devoted to this patient today, required to treat and/or prevent further deterioration of critical care condition ( as above) . Sepsis Event Evaluation Height, Weight, BMI Height: 5'6.00" Weight: 330lbs. oz. 149.236380iy; 75.82 BMI Method:Stated Exam Exam Patient acknowledged, consented, and participated in this virtual visit which was conducted using real time audio/video Vital Signs Date Time Temp Pulse Resp B/P (MAP) Pulse Ox O2 Delivery O2 Flow Rate FiO2 04/21/22 11:00 88 19 136/72 93 Nasal Cannula 2.00 04/21/22 10:00 91 18 129/93 94 Nasal Cannula 2.00 04/21/22 09:00 97 20 129/71 91 Nasal Cannula 2.00 04/21/22 08:10 98 Room Air 04/21/22 08:00 94 22 118/84 96 Nasal Cannula 2.00 04/21/22 08:00 36.3 04/21/22 07:00 94 04/21/22 07:00 94 12 130/84 99 Nasal Cannula 2.00 04/21/22 06:00 89 20 157/95 94 Nasal Cannula 2.00 04/21/22 05:00 82 19 152/76 94 Nasal Cannula 2.00 04/21/22 04:03 36.5 04/21/22 04:00 Nasal Cannula 2.00 04/21/22 04:00 85 20 165/97 97 Nasal Cannula 2.00 04/21/22 03:00 89 15 175/104 96 Nasal Cannula 2.00 04/21/22 02:00 88 18 155/89 98 Nasal Cannula 2.00 04/21/22 01:00 81 04/21/22 01:00 81 20 127/82 99 Nasal Cannula 2.00 04/21/22 00:00 82 17 116/81 99 Nasal Cannula 2.00 04/21/22 00:00 Nasal Cannula 2.00 04/20/22 23:54 36.2 04/20/22 23:00 84 15 136/85 100 Nasal Cannula 2.00 04/20/22 22:30 92 16 134/93 99 Nasal Cannula 2.00 04/20/22 22:00 85 16 119/68 99 Nasal Cannula 2.00 04/20/22 21:45 84 19 134/80 99 Nasal Cannula 2.00 04/20/22 21:30 84 18 120/82 100 Nasal Cannula 2.00 04/20/22 21:15 85 18 115/80 98 Nasal Cannula 2.00 04/20/22 21:00 83 24 80/63 97 Nasal Cannula 2.00 04/20/22 20:55 86 04/20/22 20:55 35.9 04/20/22 20:52 95 Nasal Cannula 2.00 04/20/22 19:30 88 15 125/98 94 Nasal Cannula 2.00 04/20/22 19:21 Nasal Cannula 2.00 04/20/22 18:44 88 22 107/70 (82) Room Air I & O 04/21/22 07:00 Intake Total 250 ml Output Total 1050 ml Balance -800 ml Height & Weight Height: 5'6.00" Weight: 330lbs. oz. 149.771461gk; 75.82 BMI Method:Stated General Appearance: No Apparent Distress, WD/WN, Obese Neck: Normal Inspection Respiratory: Chest Non Tender, Normal Breath Sounds, No Accessory Muscle Use, No Respiratory Distress, Decreased Breath Sounds Cardiovascular: Regular Rate, Rhythm, Systolic Murmur, Extra Beats Capillary Refill: Less Than 3 Seconds Extremity: Normal Capillary Refill, No Pedal Edema, Other Neurologic/Psychiatric: Alert, Oriented x3, No Motor/Sensory Deficits, Normal Mood/Affect, doctor of nursing practice II-XII Norm as Tested Skin: Normal Color, Warm/Dry Results Lab Laboratory Tests 04/20/22 18:50 04/21/22 04:50 Assessment/Plan Assessment/Plan ` TARAH MADRID MD Apr 21, 2022 11:55
--- NOTE | 2022-04-21 13:09 | Wound Care Assessment ---
Wound Care Assessment Date Seen by Provider: Apr 21, 2022 Time Seen by Provider: 11:30 Chief Complaint Ulcer Left anterior tibia HPI This pleasant 46 year old patient was admitted to the hospital with STEMI. She did have cath with stenting last night. She notes that she has been struggling with ulceration to L. anterior tibia for several weeks. There is an arterial workup for this area in progress (it does look suspicious for possible arterial etiology). She is massively obese and is in a nursing facility at a young age due to fibromyalgia, immobility and "severe incontinence". She reports urine soiling her leg wound repeatedly. She does have some edema in the periwound but this is associated with erythema. I do think a small area of cellulitis is likely. 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 Labs are reassuring and she does not have a h/o DM2. Lower extremities are warm with palpable DP pulses. Her ulcer is with stable eschar. Some of this is easily removed revealing a partial thickness ulcer underlying. Plan to soften eschar with Xeroform and gentle scrub with daily cleaning. Smoking Status: Never a Smoker Recreational Drug Use: No Alcohol Use: Denies Use Review of Systems General: Other (Massive obesity) Genitourinary: Incontinence Musculoskeletal: other (Immobility) Neurological: Weakness Exam Vital Signs Date Time Temp Pulse Resp B/P (MAP) Pulse Ox O2 Delivery O2 Flow Rate FiO2 04/21/22 12:00 97 12 127/73 97 Nasal Cannula 2.00 04/21/22 08:00 36.3 Capillary Refill : Less Than 3 Seconds General Appearance: no apparent distress, obese HEENT: other (normal hearing) Neck: full range of motion Respiratory: no respiratory distress, no accessory muscle use Extremities: other (trace pedal edema only) Neurologic/Psychiatric: alert, normal mood/affect, oriented x 3 Skin: normal color, warm/dry Wound assessment: Approximately 6x4x0.1cm partial thickness ulceration. The epithelialization is medium, there is no tunneling or undermining. Drainage is small and serous, Granulation is small and pink, necrotic is large and eschar. The margins are flat. There is erythema, induration and edema in the periwound extending approximately 5-6 cm in all directions. Results Laboratory Tests 04/20/22 18:50: White Blood Count 12.7H, Red Blood Count 5.10, Hemoglobin 13.8, Hematocrit 45, Mean Corpuscular Volume 88, Mean Corpuscular Hemoglobin 27, Mean Corpuscular Hemoglobin Concent 31L, Red Cell Distribution Width 13.7, Platelet Count 293, Mean Platelet Volume 10.0, Immature Granulocyte % (Auto) 1, Neutrophils (%) (Au to) 47, Lymphocytes (%) (Auto) 42, Monocytes (%) (Auto) 8, Eosinophils (%) (Auto) 2, Basophils (%) (Auto) 0, Neutrophils # (Auto) 5.9, Lymphocytes # (Auto) 5.4H, Monocytes # (Auto) 1.0, Eosinophils # (Auto) 0.3, Basophils # (Auto) 0.1, Immature Granulocyte # (Auto) 0.1, Prothrombin Time 13.4, INR Comment 1.0, Activated Partial Thromboplast Time 27, D-Dimer 0.40, Sodium Level 140, Potassium Level 4.2, Chloride Level 108H, Carbon Dioxide Level 17L, Anion Gap 15H, Blood Urea Nitrogen 20H, Creatinine 1.01, Estimat Glomerular Filtration Rate 69, BUN/Creatinine Ratio 20, Glucose Level 136H, Calcium Level 9.2, Corrected Calcium 9.3, Magnesium Level 2.4, Total Bilirubin 0.3, Aspartate Amino Transf (AST/SGOT) 12, Alanine Aminotransferase (ALT/SGPT) 17, Alkaline Phospha tase 100, Total Creatine Kinase 69, Creatine Kinase MB 1.2, Myoglobin 60.1, Troponin I < 0.028, B-Type Natriuretic Peptide < 10.0, Total Protein 7.4, Albumin 3.9, Amylase Level 31, Lipase 36, Serum Test, Qualitative NEGATIVE 04/20/22 19:03: Influenza Type A (RT-PCR) Not Detected, Influenza Type B (RT-PCR) Not Detected, SARS-CoV-2 RNA (RT-PCR) Not Detected 04/21/22 04:50: White Blood Count 10.6, Red Blood Count 4.73, Hemoglobin 12.9, Hematocrit 42, Mean Corpuscular Volume 88, Mean Corpuscular Hemoglobin 27, Mean Corpuscular Hemoglobin Concent 31L, Red Cell Distribution Width 13.7, Platelet Count 262, Mean Platelet Volume 10.0, Immature Granulocyte % (Auto) 0, Neutrophils (%) (Auto) 71, Lymphocytes (%) (Auto) 21, Monocytes (%) (Auto) 7, Eosinophils (%) (Auto) 1, Basophils (%) (Auto) 0, Neutrophils # (Auto) 7.5, Lymphocytes # (Auto) 2.2, Monocytes # (Auto) 0.7, Eosinophils # (Auto) 0.1, Basophils # (Auto) 0.0, Immature Granulocyte # (Auto) 0.0, Sodium Level 140, Potassium Level 4.3, Chloride Level 109H, Carbon Dioxide Level 20L, Anion Gap 11, Blood Urea Nitrogen 17, Creatinine 0.85, Estimat Glomerular Filtration Rate 84, BUN/Creatinine Ratio 20, Glucose Level 115H, Calcium Level 8.8, Corrected Calcium 9.1, Magnesium Level 2.3, Total Bilirubin 0.3, Aspartate Amino Transf (AST/SGOT) 32, Alanine Aminotransferase (ALT/SGPT) 19, Alkaline Phosphatase 87, Total Protein 6.6, Albumin 3.6, Phosphorus Level 3.8, Triglycerides Level 117, Cholesterol Level 133, LDL Cholesterol Direct 64, VLDL Cholesterol 23, HDL Cholesterol 44 Assessment/Plan/Dx Assessment: 1. Partial thickness ulcer left anterior tibia (possibly arterial) 2. Cellulitis 3. Massive obesity 4. Immobility with generalized weakness 5. Urinary incontinence Plan: 1. Cleanse daily with vashe and gently scrub to remove eschar. Apply xeroform to wound bed and cover with bordered foam dressing. Change daily. Agree with arterial work up 2. doxycycline 100mg bid for 10d 3. Weight loss is certainly advisable 4. Increased mobility recommended 5. Regular cleaning jose. if wound/dressing becomes soiled ULYSSES THOMPSON MD Apr 21, 2022 13:09
--- NOTE | 2022-04-21 15:20 | Consultation ---
HPI History of Present Illness: 46 yo F that was brought to ER for chest pain that started around 6PM last night. Patient states that she has had similar episode previously and at that time she was diagnosed with atrial fibrillation and CHF. Patient has extensive cardiac history that runs in her family and states that her father had a heart attack at age 38 yo. She states that she was previously cathed when she was diagnosed with CHF and had no intervention at that time. This AM she states that she feels good. Denies any chest pain or shortness of breath. She uses a walker for ambulation at baseline. Source: patient Exam Limitations: no limitations Date seen by provider: Apr 21, 2022 Time Seen by Provider: 10:05 Attending Physician No,Local Physician PCP Admitting Physician: Harsh Giron MD [facility] Attending Physician: Harsh Giron MD [facility] Consult Date of Admission Apr 20, 2022 at 20:45 Home Medications Home Medications Reviewed patient Home Medication Reconciliation performed by pharmacy medication reconciliations customer account technician and/or nursing. Patients Allergies have been reviewed. Allergies Coded Allergies: naproxen (Verified Allergy, Unknown, 07/31/07) NRW-Xtmalh-Dnzdns Hx Patient Social History Living Status: Lives at [facility] Smoking Status: Never a Smoker Recent Hopitalizations: Yes (vaginal deliveries) Alcohol Use?: No Have you traveled recently?: No Immunizations Up To Date Influenza Vaccine Up-to-Date: No; Not Current First/Initial COVID19 Vaccinat: None Second COVID19 Vaccination Odilon: NO Past Medical History Atrial fibrillation on OAC CHF HTN Morbid Obesity Family Medical History Significant Family History: No Pertinent Family Hx Other Significan Family Hx: PAST SURGICAL HISTORY: -12/2018--CARDIAC CATH, NO INTERVENTION. DX AFIB AND CHF -09/2012--NORMAL SCREENING COLONOSCOPY BY DR. CHRISTOPHER Review of Systems (CHC) Constitutional: No chills, No dizziness, No fever; malaise EENTM: no symptoms reported; No nose congestion Respiratory: no symptoms reported; No cough, No dyspnea on exertion, No short of breath Cardiovascular: chest pain; No edema, No palpitations Gastrointestinal: no symptoms reported; No abdominal pain, No constipation, No diarrhea, No nausea, No vomiting Genitourinary: no symptoms reported; No dysuria, No frequency, No hematuria : No Musculoskeletal: back pain, joint pain; No muscle pain Skin: other (LLE leg wound) Psychiatric/Neurological: No Symptoms Reported Reviewed Test Results Reviewed Test Results Lab Laboratory Tests Test 04/20/22 18:50 04/20/22 19:03 04/21/22 04:50 Range/Units White Blood Count 12.7 H 10.6 4.3-11.0 10^3/uL Red Blood Count 5.10 4.73 3.80-5.11 10^6/uL Hemoglobin 13.8 12.9 11.5-16.0 g/dL Hematocrit 45 42 35-52 % Mean Corpuscular Volume 88 88 80-99 fL Mean Corpuscular Hemoglobin 27 27 25-34 pg Mean Corpuscular Hemoglobin Concent 31 L 31 L 32-36 g/dL Red Cell Distribution Width 13.7 13.7 10.0-14.5 % Platelet Count 293 262 130-400 10^3/uL Mean Platelet Volume 10.0 10.0 9.0-12.2 fL Immature Granulocyte % (Auto) 1 0 % Neutrophils (%) (Auto) 47 71 42-75 % Lymphocytes (%) (Auto) 42 21 12-44 % Monocytes (%) (Auto) 8 7 0-12 % Eosinophils (%) (Auto) 2 1 0-10 % Basophils (%) (Auto) 0 0 0-10 % Neutrophils # (Auto) 5.9 7.5 1.8-7.8 10^3/uL Lymphocytes # (Auto) 5.4 H 2.2 1.0-4.0 10^3/uL Monocytes # (Auto) 1.0 0.7 0.0-1.0 10^3/uL Eosinophils # (Auto) 0.3 0.1 0.0-0.3 10^3/uL Basophils # (Auto) 0.1 0.0 0.0-0.1 10^3/uL Immature Granulocyte # (Auto) 0.1 0.0 0.0-0.1 10^3/uL Prothrombin Time 13.4 12.2-14.7 SEC INR Comment 1.0 0.8-1.4 Activated Partial Thromboplast Time 27 24-35 SEC D-Dimer 0.40 0.00-0.49 UG/ML Sodium Level 140 140 135-145 MMOL/L Potassium Level 4.2 4.3 3.6-5.0 MMOL/L Chloride Level 108 H 109 H 98-107 MMOL/L Carbon Dioxide Level 17 L 20 L 21-32 MMOL/L Anion Gap 15 H 11 5-14 MMOL/L Blood Urea Nitrogen 20 H 17 7-18 MG/DL Creatinine 1.01 0.85 0.60-1.30 MG/DL Estimat Glomerular Filtration Rate 69 84 BUN/Creatinine Ratio 20 20 Glucose Level 136 H 115 H 70-105 MG/DL Calcium Level 9.2 8.8 8.5-10.1 MG/DL Corrected Calcium 9.3 9.1 8.5-10.1 MG/DL Magnesium Level 2.4 2.3 1.6-2.4 MG/DL Total Bilirubin 0.3 0.3 0.1-1.0 MG/DL Aspartate Amino Transf (AST/SGOT) 12 32 5-34 U/L Alanine Aminotransferase (ALT/SGPT) 17 19 0-55 U/L Alkaline Phosphatase 100 87 40-136 U/L Total Creatine Kinase 69 29-168 U/L Creatine Kinase MB 1.2 <6.6 NG/ML Myoglobin 60.1 10.0-92.0 NG/ML Troponin I < 0.028 <0.028 NG/ML B-Type Natriuretic Peptide < 10.0 <100.0 PG/ML Total Protein 7.4 6.6 6.4-8.2 GM/DL Albumin 3.9 3.6 3.2-4.5 GM/DL Amylase Level 31 25-125 U/L Lipase 36 8-78 U/L Serum Test, Qualitative NEGATIVE NEGATIVE Influenza Type A (RT-PCR) Not Detected Not Detecte Influenza Type B (RT-PCR) Not Detected Not Detecte SARS-CoV-2 RNA (RT-PCR) Not Detected Not Detecte Phosphorus Level 3.8 2.3-4.7 MG/DL Triglycerides Level 117 <150 MG/DL Cholesterol Level 133 < 200 MG/DL LDL Cholesterol Direct 64 1-129 MG/DL VLDL Cholesterol 23 5-40 MG/DL HDL Cholesterol 44 40-60 MG/DL Physical Exam-(CHC) Physical Exam Vital Signs VS - Last 72 Hours, by Label 04/20/22 04/20/22 04/20/22 04/20/22 18:44 19:21 19:30 20:52 Pulse 88 88 Resp 22 15 B/P (MAP) 107/70 (82) 125/98 Pulse Ox 94 95 O2 Delivery Room Air Nasal Cannula Nasal Cannula Nasal Cannula O2 Flow Rate 2.00 2.00 2.00 04/20/22 04/20/22 04/20/22 04/20/22 20:55 20:55 21:00 21:15 Temp 35.9 Pulse 86 83 85 Resp 24 18 B/P (MAP) 80/63 115/80 Pulse Ox 97 98 O2 Delivery Nasal Cannula Nasal Cannula O2 Flow Rate 2.00 2.00 04/20/22 04/20/22 04/20/22 04/20/22 21:30 21:45 22:00 22:30 Pulse 84 84 85 92 Resp 18 19 16 16 B/P (MAP) 120/82 134/80 119/68 134/93 Pulse Ox 100 99 99 99 O2 Delivery Nasal Cannula Nasal Cannula Nasal Cannula Nasal Cannula O2 Flow Rate 2.00 2.00 2.00 2.00 04/20/22 04/20/22 04/21/22 04/21/22 23:00 23:54 00:00 00:00 Temp 36.2 Pulse 84 82 Resp 15 17 B/P (MAP) 136/85 116/81 Pulse Ox 100 99 O2 Delivery Nasal Cannula Nasal Cannula Nasal Cannula O2 Flow Rate 2.00 2.00 2.00 04/21/22 04/21/22 04/21/22 04/21/22 01:00 01:00 02:00 03:00 Pulse 81 81 88 89 Resp 20 18 15 B/P (MAP) 127/82 155/89 175/104 Pulse Ox 99 98 96 O2 Delivery Nasal Cannula Nasal Cannula Nasal Cannula O2 Flow Rate 2.00 2.00 2.00 04/21/22 04/21/22 04/21/22 04/21/22 04:00 04:00 04:03 05:00 Temp 36.5 Pulse 85 82 Resp 20 19 B/P (MAP) 165/97 152/76 Pulse Ox 97 94 O2 Delivery Nasal Cannula Nasal Cannula Nasal Cannula O2 Flow Rate 2.00 2.00 2.00 04/21/22 04/21/22 04/21/22 04/21/22 06:00 07:00 07:00 08:00 Temp 36.3 Pulse 89 94 94 Resp 20 12 B/P (MAP) 157/95 130/84 Pulse Ox 94 99 O2 Delivery Nasal Cannula Nasal Cannula O2 Flow Rate 2.00 2.00 04/21/22 04/21/22 04/21/22 04/21/22 08:00 08:10 09:00 10:00 Pulse 94 97 91 Resp 22 20 18 B/P (MAP) 118/84 129/71 129/93 Pulse Ox 96 98 91 94 O2 Delivery Nasal Cannula Room Air Nasal Cannula Nasal Cannula O2 Flow Rate 2.00 2.00 2.00 04/21/22 04/21/22 04/21/22 04/21/22 11:00 12:00 12:15 13:00 Pulse 88 97 95 Resp 19 12 B/P (MAP) 136/72 127/73 Pulse Ox 93 97 97 O2 Delivery Nasal Cannula Nasal Cannula Room Air O2 Flow Rate 2.00 2.00 04/21/22 04/21/22 04/21/22 13:00 14:00 15:00 Pulse 96 95 100 Resp 23 17 24 B/P (MAP) 111/61 123/86 131/73 Pulse Ox 94 96 94 O2 Delivery Nasal Cannula Nasal Cannula Nasal Cannula O2 Flow Rate 2.00 2.00 2.00 Capillary Refill : Less Than 3 Seconds General Appearance: WD/WN, no apparent distress, obese (BMI 75) HEENT: PERRL/EOMI Neck: non-tender, full range of motion, supple Respiratory: chest non-tender, lungs clear, normal breath sounds, no respiratory distress, no accessory muscle use Cardiovascular: normal peripheral pulses, regular rate, rhythm, no edema, no murmur Gastrointestinal: normal bowel sounds, non tender, soft Back: normal inspection, no CVA tenderness, no vertebral tenderness Extremities: normal range of motion, non-tender, no pedal edema, no calf tenderness, normal capillary refill, other (LLE leg wound, no signs of secondary infection or cellulitis) Neurologic/Psychiatric: compensation and benefits advisor II-XII nml as tested, alert, normal mood/affect, oriented x 3 Assessment/Plan Assessment/Plan (1) Acute ST elevation myocardial infarction (STEMI) of inferior wall Status: Acute Assessment & Plan: - Cardiology managing, thank you for the consult (2) History of atrial fibrillation Status: Acute Assessment & Plan: - Rate controlled and on OAC (3) Hx of congestive heart failure Status: Acute (4) Morbid obesity Status: Acute Assessment & Plan: - Discussed the importance of weight loss with the patient Clinical Quality Measures AMI/AHF: ASA po Prior to arrival: Yes EDDIE JACINTO MD Apr 21, 2022 15:20
[2022-04-21] MEDS: DOXYCYCLINE 100 MG (VIBRAMYCIN) TABLET PO SCH (20:24)
[2022-04-21] MEDS: ONDANSETRON 4 MG/2 ML (SDV) Z0FRAN IVP PRN (21:30)
[2022-04-22] MEDS ORDERED: MELATONIN 3 MG TABLET PO SCH (01:15)
[2022-04-22 05:22] LABS: BASOPHILS % (AUTO) 0 % (0-10); EOSINOPHILS # (AUTO) 0.2 10^3/uL (0.0-0.3); EOSINOPHILS % (AUTO) 2 % (0-10); HEMATOCRIT 40 % (35-52); HEMOGLOBIN 12.5 g/dL (11.5-16.0); LYMPHOCYTES # (AUTO) 2.9 10^3/uL (1.0-4.0); LYMPHOCYTES % (AUTO) 31 % (12-44); MEAN CORPUSCULAR HEMOGLOBIN 27 pg (25-34); MEAN CORPUSCULAR HGB CONC 31 g/dL (32-36); MEAN CORPUSCULAR VOLUME 87 fL (80-99); MEAN PLATELET VOLUME 10.2 fL (9.0-12.2); MONOCYTES # (AUTO) 0.7 10^3/uL (0.0-1.0); MONOCYTES % (AUTO) 8 % (0-12); NEUTROPHILS # (AUTO) 5.4 10^3/uL (1.8-7.8); NEUTROPHILS % (AUTO) 58 % (42-75); PLATELET COUNT 249 10^3/uL (130-400); WHITE BLOOD COUNT 9.3 10^3/uL (4.3-11.0)
[2022-04-22 05:50] LABS: ALBUMIN 3.5 GM/DL (3.2-4.5); POTASSIUM 3.6 MMOL/L (3.6-5.0)
[2022-04-22 05:51] LABS: CALCIUM 8.9 MG/DL (8.5-10.1)
[2022-04-22 05:53] LABS: TOTAL PROTEIN 6.6 GM/DL (6.4-8.2)
[2022-04-22 05:54] LABS: BILIRUBIN,TOTAL 0.4 MG/DL (0.1-1.0)
[2022-04-22 05:56] LABS: CREATININE SERUM 0.79 MG/DL (0.60-1.30); PHOSPHORUS 2.9 MG/DL (2.3-4.7)
[2022-04-22 05:59] LABS: MAGNESIUM 1.9 MG/DL (1.6-2.4)
[2022-04-22] MEDS: POTASSIUM CL 10MEQ/50ML IVPB 50 ML IV SCH (06:14)
[2022-04-22] MEDS: MAGNESIUM 1 GM/100 ML IVPB 100 ML IV SCH (06:14)
[2022-04-22] MEDS: KCL 20 MEQ TAB (K-DUR) PO SCH (06:29)
[2022-04-22] MEDS: ACETAMINOPHEN 325 MG TABLET PO PRN (06:35)
[2022-04-22] MEDS: ASPIRIN 81 MG CHEW (CHILDREN'S ASA) PO SCH (08:56)
[2022-04-22] MEDS: DOXYCYCLINE 100 MG (VIBRAMYCIN) TABLET PO SCH (08:56)
[2022-04-22] MEDS: meTOprolol TARTRATE 25 MG (LOPRESSOR) TABLET PO SCH (08:57)
[2022-04-22] MEDS: CLOPIDOGREL 75 MG (PLAVIX) TABLET PO SCH (08:57)
[2022-04-22] MEDS: APIXABAN 5 MG (ELIQUIS) TABLET PO SCH (08:57)
[2022-04-22] MEDS ORDERED: HYPOCHLOROUS ACID/NaCl (VASHE) 250 ML IR SCH (09:00)
--- NOTE | 2022-04-22 09:23 | Tele-ICU Progress Note ---
Subjective Date Seen by a Provider: Apr 22, 2022 Time Seen by a Provider: 09:18 Subjective/Events-last exam Available chart/vitals/labs/images reviewed. Video assessment done using telemetry ICU camera, rest of exam as per RN. Discussion with the RN, exam as per RN. Hospital course Patient currently denies any chest pain. She is resting comfortably in the bed. She underwent RCA stent. She has a paroxysmal atrial fibrillation for which she is on Eliquis. Her BMI is 73 today. Sepsis Event Evaluation Height, Weight, BMI Height: 5'6.00" Weight: 330lbs. oz. 149.276290bj; 73.78 BMI Method:Stated Exam Exam Patient acknowledged, consented, and participated in this virtual visit which was conducted using real time audio/video Vital Signs Date Time Temp Pulse Resp B/P (MAP) Pulse Ox O2 Delivery O2 Flow Rate FiO2 04/22/22 09:00 101 23 138/92 93 Room Air 04/22/22 08:00 98 27 133/78 91 Room Air 04/22/22 08:00 98 Room Air 04/22/22 07:46 36.4 04/22/22 07:00 102 04/22/22 07:00 106 11 134/82 96 Room Air 04/22/22 06:00 104 22 121/91 91 Room Air 04/22/22 05:00 101 22 129/90 91 Room Air 04/22/22 04:34 Room Air 04/22/22 04:00 93 23 112/67 94 Room Air 04/22/22 03:12 98 Room Air 04/22/22 03:08 36.5 Room Air 04/22/22 03:00 98 23 123/81 92 Room Air 04/22/22 02:00 101 21 135/81 93 Room Air 04/22/22 01:00 98 24 139/68 90 Room Air 04/22/22 01:00 98 04/22/22 00:00 100 18 131/89 93 Room Air 04/21/22 23:55 36.4 Room Air 04/21/22 23:46 98 Room Air 04/21/22 23:00 101 22 121/77 94 Nasal Cannula 2.00 04/21/22 22:36 98 Room Air 04/21/22 22:00 89 15 103/69 92 Nasal Cannula 2.00 04/21/22 21:00 104 14 94/67 96 Nasal Cannula 2.00 04/21/22 20:00 96 Room Air 04/21/22 20:00 107 18 117/59 91 Nasal Cannula 2.00 04/21/22 19:10 36.3 04/21/22 19:00 99 15 127/65 97 Nasal Cannula 2.00 04/21/22 19:00 99 04/21/22 18:00 99 22 113/91 96 Nasal Cannula 2.00 04/21/22 17:00 107 12 109/95 93 Nasal Cannula 2.00 04/21/22 16:15 94 Room Air 04/21/22 16:00 95 11 125/67 93 Nasal Cannula 2.00 04/21/22 16:00 36.5 04/21/22 15:00 100 24 131/73 94 Nasal Cannula 2.00 04/21/22 14:00 95 17 123/86 96 Nasal Cannula 2.00 04/21/22 13:00 96 23 111/61 94 Nasal Cannula 2.00 04/21/22 13:00 95 04/21/22 12:15 97 Room Air 04/21/22 12:00 97 12 127/73 97 Nasal Cannula 2.00 04/21/22 11:00 88 19 136/72 93 Nasal Cannula 2.00 04/21/22 10:00 91 18 129/93 94 Nasal Cannula 2.00 I & O 04/22/22 07:00 Intake Total 4400 ml Output Total 7225 ml Balance -2825 ml Height & Weight Height: 5'6.00" Weight: 330lbs. oz. 149.980791aq; 73.78 BMI Method:Stated General Appearance: No Apparent Distress, WD/WN, Obese Neck: Normal Inspection Respiratory: Chest Non Tender, Normal Breath Sounds, No Accessory Muscle Use, No Respiratory Distress, Decreased Breath Sounds Cardiovascular: Regular Rate, Rhythm, Systolic Murmur, Extra Beats Capillary Refill: Less Than 3 Seconds Gastrointestinal: normal bowel sounds, non tender, soft Extremity: Normal Capillary Refill, No Pedal Edema, Other Neurologic/Psychiatric: Alert, Oriented x3, No Motor/Sensory Deficits, Normal Mood/Affect, refrigeration operator II-XII Norm as Tested Skin: Normal Color, Warm/Dry Results Lab Laboratory Tests 04/20/22 18:50 04/21/22 04:50 04/22/22 04:32 Assessment/Plan Assessment/Plan 1. STEMI, status post RCA stenting. Previous 2D echo done on 03/30/2022 showing a normal LV size and function. EF is 55 to 60%. 2. PAF. Currently she is in sinus rhythm. She is on Eliquis. 3. Leg wound. As per wound care MD, US arterial pending. Off antibiotics. 4. VTE prophylaxis. She is on Eliquis 5. May transfer to step down unit and have her ambulate before going home. Critical Care: Critically Ill Patient Time spent with patient (mins): 20 JOHN RAMOS MD Apr 22, 2022 09:23
--- NOTE | 2022-04-22 10:39 | Progress Note - Hospitalist ---
Subjective HPI/CC On Admission Date Seen by Provider: Apr 22, 2022 Time Seen by Provider: 11:30 Objective Exam Vital Signs Vital Signs Date Time Temp Pulse Resp B/P (MAP) Pulse Ox O2 Delivery O2 Flow Rate FiO2 04/22/22 10:00 112 22 129/100 91 Room Air 04/22/22 07:46 36.4 04/21/22 23:00 2.00 Capillary Refill : Less Than 3 Seconds Results/Procedures Lab Laboratory Tests 04/22/22 04:32 Patient resulted labs reviewed. Clinical Quality Measures AMI/AHF: ASA po Prior to arrival: Yes FRANCHESCA PAIGE DO Apr 22, 2022 10:39
[2022-04-22] MEDS ORDERED: METO-333 PO (10:53)
[2022-04-22] MEDS ORDERED: ASPI81TA64 PO (10:53)
[2022-04-22] MEDS ORDERED: SODI475I IR (10:53)
[2022-04-22] MEDS ORDERED: DOXY100T2 PO (10:53)
[2022-04-22] MEDS ORDERED: CLOP75TA28 PO (10:53)
[2022-04-22] MEDS ORDERED: ATOR40TA PO (10:53)
--- NOTE | 2022-04-22 10:54 | Discharge Summary ---
Discharge Summary Hospital Course Was the Problem List Reviewed?: Yes Problems/Dx: (1) Acute ST elevation myocardial infarction (STEMI) of inferior wall Status: Acute Hospital Course Date of Admission: Apr 20, 2022 at 20:45 Admission Diagnosis : Family Physician/Provider: No,Local Physician Date of Discharge: 04/22/22 Discharge Diagnosis: STEMI Hospital Course: Pt had an uneventful hospital course after she was admitted for STEMI. She did undergo cardiac catheterization with stent placement and angioplasty. She was placed on Plavix, Aspirin, and high dose Statin therapy. She was back to her baseline activity. Doxycycline was initiated by wound care of left leg. Pt was deemed stable for discharge. Labs and Pending Lab Test: Laboratory Tests 04/22/22 04:32: White Blood Count 9.3, Red Blood Count 4.66, Hemoglobin 12.5, Hematocrit 40, Mean Corpuscular Volume 87, Mean Corpuscular Hemoglobin 27, Mean Corpuscular Hemoglobin Concent 31L, Red Cell Distribution Width 13.9, Platelet Count 249, Mean Platelet Volume 10.2, Immature Granulocyte % (Auto) 1, Neutrophils (%) (Auto) 58, Lymphocytes (%) (Auto) 31, Monocytes (%) (Auto) 8, Eosinophils (%) (Auto) 2, Basophils (%) (Auto) 0, Neutrophils # (Auto) 5.4, Lymphocytes # (Auto) 2.9, Monocytes # (Auto) 0.7, Eosinophils # (Auto) 0.2, Basophils # (Auto) 0.0, Immature Granulocyte # (Auto) 0.1, Sodium Level 141, Potassium Level 3.6, Chloride Level 108H, Carbon Dioxide Level 22, Anion Gap 11, Blood Urea Nitrogen 13, Creatinine 0.79, Estimat Glomerular Filtration Rate 92, BUN/Creatinine Ratio 16, Glucose Level 105, Calcium Level 8.9, Corrected Calcium 9.3, Phosphorus Level 2.9, Magnesium Level 1.9, Total Bilirubin 0.4, Aspartate Amino Transf (AST/SGOT) 24, Alanine Aminotransferase (ALT/SGPT) 15, Alkaline Phosphatase 88, Total Protein 6.6, Albumin 3.5 Microbiology 04/20/22 MRSA Screen - Final, Complete MRSA not isolated Home Meds Active Reported Topiramate 50 Mg Tablet 100 Mg PO BID TAKES 2 (50MG) TABS Rosuvastatin Calcium 10 Mg Tablet 10 Mg PO DAILY Potassium Chloride 20 Meq Tablet.er 20 Meq PO TIDWM Metoprolol Succinate 50 Mg Tab.er.24h 50 Mg PO DAILY HOLD IF SYSTOLIC <110 Magnesium (Magnesium Oxide) 250 Mg Tablet 250 Mg PO BID Lisinopril 5 Mg Tablet 5 Mg PO HS Hydroxyzine HCl 25 Mg Tablet 25 Mg PO HS PRN Neurontin (Gabapentin) 300 Mg Capsule 300 Mg PO TID Furosemide 40 Mg Tablet 40 Mg PO Q12H PRN Eliquis (Apixaban) 5 Mg Tablet 5 Mg PO BID Duloxetine HCl 60 Mg Capsule.dr 120 Mg PO DAILY TAKES 2 (60MG) CAPS Weekly-D (Cholecalciferol (Vitamin D3)) 1,250 Mcg (38327 Unit) Capsule 1,250 Mcg PO EFREN Assessment/Pt Instructions PCP 1 week Discharge Planning: <30 minutes discharge planning Discharge Instructions Discharge Diet: Cardiac Diet Discharge Physical Examination Vital Signs Vital Signs Date Time Temp Pulse Resp B/P (MAP) Pulse Ox O2 Delivery O2 Flow Rate FiO2 04/22/22 10:00 112 22 129/100 91 Room Air 04/22/22 07:46 36.4 04/21/22 23:00 2.00 General Appearance: No Apparent Distress, WD/WN Respiratory: Lungs Clear Cardiovascular: Regular Rate, Rhythm Allergies: Coded Allergies: naproxen (Verified Allergy, Unknown, 07/31/07) Discharge Summary Date of Admission Apr 20, 2022 at 20:45 Date of Discharge Discharge Date: Apr 22, 2022 Clinical Quality Measures AMI/AHF: ASA po Prior to arrival: Yes FRANCHESCA PAIGE DO Apr 22, 2022 10:54
--- NOTE | 2022-04-22 11:36 | Physical Therapy Evaluation ---
PT Evaluation-General Medical Diagnosis Admission Date Apr 20, 2022 at 20:45 Medical Diagnosis: weakness, STEMI Onset Date: Apr 20, 2022 Therapy Diagnosis Therapy Diagnosis: impaired mobility Height/Weight Height (Feet): 5 Height (Inches): 6.00 Weight (Pounds): 330 Precautions Precautions/Isolations: Fall Prevention, Standard Precautions Referral Physician: Inez Cosby DO Reason for Referral: Evaluation/Treatment Medical History Pertinent Medical History: HTN Additional Medical History morbid obesity Social History Home: Assisted Living Prior Prior Level of Function SCALE: Activities may be completed with or without assistive devices. 0-Ysywokeror-juuvonb completes the activity by him/herself with no assistance from a helper. 5-Set-up or Clean-up Assistance-helper sets up or cleans up; patient completes activity. [place] assists only prior to or following the activity. 4-Supervision or Touching Assistance-helper provides verbal cues and/or touching/steadying and/or contact guard assistance as patient completes activity. Assistance may be provided throughout the activity or intermittently. 3-Partial/Moderate Assistance-helper does LESS THAN HALF the effort. [place] lifts, holds or supports trunk or limbs, but provides less than half the effort. 2-Substantial/Maximal Assistance-helper does MORE THAN HALF the effort. [place] lifts or holds trunk or limbs and provides more than half the effort. 3-Jufbcvurt-jrqlnt does ALL the effort. Patient does none of the effort to complete the activity. Or, the assistance of 2 or more helpers is required for the patient to complete the activity. If activity was not attempted, code reason: 7-Patient Refused. 9-Not Applicable-not attempted and the patient did not perform the activity before the current illness, exacerbation or injury. 10-Not Attempted due to Environmental Limitations-(lack of equipment, weather restraints, etc.). 88-Not Attempted due to Medical Conditions or Safety Concerns. Bed Mobility: 6 Transfers (B,C,W/C): 3 Gait: 3 Patient states she usually gets around in a scooter, use a rolling walker to get into the restroom PT Evaluation-Current Subjective Patient in recliner pre tx, agrees to PT, has pain "all over" due to fibromyalgia. Patient is very lethargic Pt/Family Goals "to go home" Objective Patient Orientation: Person, Place, Situation Attachments: Wyatt Catheter ROM/Strength ROM Lower Extremities limited due to obesity Strength Lower Extremities NT due to patient stating she has pain in her legs and knees Sensory Vision: Functional Hearing: Functional Transfers Sit to Stand (QC): 1 Chair/Ixf-mh-Aqwsp Xfer(QC): 4 assist of 2 for sit to stand from recliner, patient states she does better from higher surfaces Gait Does the Patient Walk?: Yes Mode of Locomotion: Walk Anticipated Mode of Locomotion: Walk Walk 10 feet (QC): 4 Distance: 20' Gait Assistive Device: FWW Comments/Gait Description slow ambulation, very slumped posture Assessment/Needs Patient sitting EOB post tx with nurse call, phone, tray, all needs met. Patient requested to sit EOB for a while and states that it is easier for her to stand and transfer from the bed when she needs to. Nurse notified. Patient notified to call nurse when she needs to get up. Rehab Potential: Fair PT Manager Of Business Goals Alf Goals PT Alf Goals Time Frame: Apr 29, 2022 Roll Left & Right (QC): 6 Sit to Lying (QC): 6 Lying-Sitting on Side/Bed(QC): 6 Sit to Stand (QC): 3 Chair/Epo-zc-Nqbnl Xfer(QC): 4 PT Plan Problem List Problem List: Activity Tolerance, Functional Strength, Safety, Balance, Gait, Transfer, Bed Mobility, ROM Treatment/Plan Treatment Plan: Continue Plan of Care Treatment Plan: Bed Mobility, Education, Functional Activity Jayashree, Functional Strength, Gait, Safety, Therapeutic Exercise, Transfers Treatment Duration: Apr 29, 2022 Frequency: 6 times per week Estimated Hrs Per Day: .25 hour per day Patient and/or Family Agrees t: Yes Safety Risks/Education Patient Education: Gait Training, Transfer Techniques, Correct Positioning, Safety Issues Teaching Recipient: Patient Teaching Methods: Demonstration, Discussion Response to Teaching: Reinforcement Needed Discharge Recommendations Plan Patient will perform bed mobility and transfer training, balance and endurance training, functional strengthening, gait training, and education, to improve functional mobility and independence at home. Therapy Discharge Recommendati: Other, See Comments (NH) Time/GCodes Time In: 1113 Time Out: 1126 Total Billed Treatment Time: 13 Total Billed Treatment 1 visit JAMES ALMANZAR PT Apr 22, 2022 11:36
--- NOTE | 2022-04-22 11:37 | Occupational Therapy Eval ---
OT Evaluation-General/PLF Medical Diagnosis Admission Date Apr 20, 2022 at 20:45 Medical Diagnosis: STEMI Onset Date: Apr 20, 2022 Therapy Diagnosis Therapy Diagnosis: reduced endurance, balance, adls Height/Weight Height (Feet): 5 Height (Inches): 6.00 Weight (Pounds): 330 Precautions Precautions/Isolations: Fall Prevention, Standard Precautions Referral Physician: Alea Referral Reason: Evaluation/Treatment Medical History Pertinent Medical History: HTN Additional Medical History obesity, hyperlipidemia Current History Pt arrived to ER with chest pain. Found to have STEMI. Cardiac cath performed 04/21/22. Per patient she lives in assisted living. She receives assist with LB/UB dressing, bathing and all IADLs. Pt was indep with toileting. She uses a motorized scooter at baseline but does verbalize that she was able to use a walker for very short distances such as walking in/out of bathroom. Reviewed History: Yes Social History Home: Assisted Living ADL-Prior Level of Function SCALE: Activities may be completed with or without assistive devices. 2-Whixxjmtpe-hxyyqpu completes the activity by him/herself with no assistance from a helper. 5-Set-up or Clean-up Assistance-helper sets up or cleans up; patient completes activity. [place] assists only prior to or following the activity. 4-Supervision or Touching Assistance-helper provides verbal cues and/or touching/steadying and/or contact guard assistance as patient completes activity. Assistance may be provided throughout the activity or intermittently. 3-Partial/Moderate Assistance-helper does LESS THAN HALF the effort. [place] lifts, holds or supports trunk or limbs, but provides less than half the effort. 2-Substantial/Maximal Assistance-helper does MORE THAN HALF the effort. [place] lifts or holds trunk or limbs and provides more than half the effort. 8-Rjrjhguki-nkkunq does ALL the effort. Patient does none of the effort to complete the activity. Or, the assistance of 2 or more helpers is required for the patient to complete the activity. If activity was not attempted, code reason: 7-Patient Refused. 9-Not Applicable-not attempted and the patient did not perform the activity before the current illness, exacerbation or injury. 10-Not Attempted due to Environmental Limitations-(lack of equipment, weather restraints, etc.). 88-Not Attempted due to Medical Conditions or Safety Concerns. Self Care: Needed Some Help Functional Cognition: Needed Some Help DME/Equipment: Bath Bench, Shower OT Current Status Subjective Pt reports pain "all over." States she has fibromyalgia. "I'm aquatic, nobody believes me that I need to shower 4-5 times a day." Appearance Pt left sitting on the side of the bed. RN notified. Mental Status/Objective Patient Orientation: Person, Place, Situation Attachments: Cui Catheter, IV, Telemetry Current Hand Dominance: Right Upper Extremity ROM Bilateral shoulders: WFL with extra time Bilateral elbows: Limited by body habitus Upper Extremity Strength Not formally tested secondary to c/o back, chest, and shoulder pain ADL-Treatment Eating (QC): 6 Oral Hygiene (QC): 5 (per clinical judgment at seated level) On/Off Footwear (QC): 1 (Pt reports she does not wear socks at home, only slip on shoes) Toileting Hygiene (QC): 1 (cui catheter) Pt sitting in recliner at therapy arrival. Significant time and cues to redirect back to task as pt often attempting to delay initiation. Assist x2 to stand from low surface. Once upright, CGA of 1-2 needed for safety. Flexed posture, unable to correct despite cues. Pt ambulated ~20 feet with walker, slow but steady gait. Pt is scheduled to discharge this date. OT recommends continued assist from staff for adls. At this time, pt may not be safe to get on/off motorized cart without assistance/supervision. Education OT Patient Education: Correct positioning, Modified ADL techniques, Purpose of tx/functional activities, Reviewed precautions, Rehab process, Safety issues, Transfer techniques Teaching Recipient: Patient Teaching Methods: Demonstration, Discussion Response to Teaching: Verbalize Understanding, Reinforcement Needed OT Prison Goals Prison Goals Time Frame: May 06, 2022 Toileting Hygiene (QC): 4 Shower/Bathe Self (QC): 3 Upper Body Dressing (QC): 3 Lower Body Dressing (QC): 3 1=Demonstrate adherence to instructed precautions during ADL tasks. 2=Patient will verbalize/demonstrate understanding of assistive devices/modifications for ADL. 3=Patient will improve strength/tolerance for activity to enable patient to perform ADL's. OT Education/Plan Problem List/Assessment Assessment: Decreased Activ Tolerance, Decreased Safety Aware, Decreased UE Strength, Dependent Transfers, Impaired Cognition, Impaired Funct Balance, Impaired Self-Care Skills Discharge Recommendations Plan/Recommendations: Continue POC Therapy Discharge Recommendati: Assisted Living Treatment Plan/Plan of Care Treatment,Training & Education: Yes Patient would benefit from OT for education, treatment and training to promote independence in ADL's, mobility, safety and/or upper extremity function for ADL's. Plan of Care: ADL Retraining, Cognitive Retraining, Functional Mobility, Group Exercise/Act as Ind, UE Funct Exercise/Act, W/C Management Training Treatment Duration: May 06, 2022 Frequency: 3 times per week (3-5x/week) Estimated Hrs Per Day: .25 hour per day Rehab Potential: Poor Time/GCodes Start Time: 11:12 Stop Time: 11:26 Total Time Billed (hr/min): 14 Billed Treatment Time 1 visit Una Mercer OT Apr 22, 2022 11:37
--- NOTE | 2022-04-22 12:26 | Progress Note - Cardiology ---
Cardiology SOAP Progress Note Subjective: Sitting up on the side of the bed Wants to go home No c/o CP, SOB, palpitations No c/o groin site pain Objective: I&O/Vital Signs 04/22/22 04/22/22 04/22/22 04/22/22 01:00 01:00 02:00 03:00 Pulse 98 98 101 98 Resp 24 21 23 B/P (MAP) 139/68 135/81 123/81 Pulse Ox 90 93 92 O2 Delivery Room Air Room Air Room Air 04/22/22 04/22/22 04/22/22 04/22/22 03:08 03:12 04:00 04:34 Temp 36.5 Pulse 93 Resp 23 B/P (MAP) 112/67 Pulse Ox 98 94 O2 Delivery Room Air Room Air Room Air Room Air 04/22/22 04/22/22 04/22/22 04/22/22 05:00 06:00 07:00 07:00 Pulse 101 104 106 102 Resp 22 11 B/P (MAP) 129/90 121/91 134/82 Pulse Ox 91 91 96 O2 Delivery Room Air Room Air Room Air 04/22/22 04/22/22 04/22/22 04/22/22 07:46 08:00 08:00 09:00 Temp 36.4 Pulse 98 101 Resp 27 23 B/P (MAP) 133/78 138/92 Pulse Ox 98 91 93 O2 Delivery Room Air Room Air Room Air 04/22/22 04/22/22 04/22/22 04/22/22 10:00 11:00 11:49 12:00 Temp 36.7 Pulse 112 85 88 Resp 22 19 16 B/P (MAP) 129/100 130/80 104/90 Pulse Ox 91 92 97 O2 Delivery Room Air Room Air Room Air 04/22/22 00:00 Intake Total 2150 ml Output Total 3750 ml Balance -1600 ml Weight (Pounds): 330 Weight (Calculated Kilograms): 149.958203 Constitutional: AAO x 3, well-developed, well-nourished Respiratory: No accessory muscle use; other (fair air entry, diminished at the bases) Cardiovascular: regular rate-rhythm, S1 and S2, systolic murmur (soft JAIRO at card base) Gastrointestional: No tender; soft; No guarding, No rebound; audible bowel sounds Extremities: swelling (moderate, bilat leg edema); No clubbing, No cyanosis Skin: warm/dry, ulcerations (approx 4" tommie, maplike, superficial ulceration on the outer aspect of the L lower leg) Results/Procedures: Labs Laboratory Tests 04/22/22 04:32: White Blood Count 9.3, Red Blood Count 4.66, Hemoglobin 12.5, Hematocrit 40, Mean Corpuscular Volume 87, Mean Corpuscular Hemoglobin 27, Mean Corpuscular Hemoglobin Concent 31L, Red Cell Distribution Width 13.9, Platelet Count 249, Mean Platelet Volume 10.2, Immature Granulocyte % (Auto) 1, Neutrophils (%) (A uto) 58, Lymphocytes (%) (Auto) 31, Monocytes (%) (Auto) 8, Eosinophils (%) (Auto) 2, Basophils (%) (Auto) 0, Neutrophils # (Auto) 5.4, Lymphocytes # (Auto) 2.9, Monocytes # (Auto) 0.7, Eosinophils # (Auto) 0.2, Basophils # (Auto) 0.0, Immature Granulocyte # (Auto) 0.1, Sodium Level 141, Potassium Level 3.6, Chloride Level 108H, Carbon Dioxide Level 22, Anion Gap 11, Blood Urea Nitrogen 13, Creatinine 0.79, Estimat Glomerular Filtration Rate 92, BUN/Creatinine Ratio 16, Glucose Level 105, Calcium Level 8.9, Corrected Calcium 9.3, Phosphorus Level 2.9, Magnesium Level 1.9, Total Bilirubin 0.4, Aspartate Amino Transf (AST/SGOT) 24, Alanine Aminotransferase (ALT/SGPT) 15, Alkaline Phosphatase 88, Total Protein 6.6, Albumin 3.5 Microbiology 04/20/22 MRSA Screen - Final, Complete MRSA not isolated Laboratory Tests 04/20/22 18:50 04/21/22 04:50 04/22/22 04:32 A/P: Assessment: ST elevation in inf leads suggestive of ac inf wall STEMI CAD - Coronary artery disease primarily consisting of distal occlusion of the posterior descending branches to which successful percutaneous intervention was carried out, following deployment of Skypoint 2.5 x 12 mm stent, there is no significant residual stenosis and the distal flow improved from RAFA 0 to RAFA. The rest of the coronary vessels do not exhibit significant disease. Normal global left ventricular systolic function with ejection fraction approximately 55% to 60%. Elevated left ventricular end-diastolic pressure (18 mmHg) PAF, by history - OAC with Eliquis Hypertension, by history Morbid obesity: BMI approx 73 Hyperlipidemia, treated with statin Plan: * S/P cardiac cath with successful coronary intervention * Continue current medication regimen including DAPT, BB, OAC and statin * Advise f/u as out pt with Dr. Ewing in 10 days Clinical Quality Measures AMI/AHF: ASA po Prior to arrival: Yes DK MADRID Apr 22, 2022 12:26
--- NOTE | 2022-04-22 18:05 | Progress Note - Cardiology ---
Cardiology SOAP Progress Note Subjective: No cp or palp or syncope No shortness of breath at rest No n/v/d Wishes to go home Objective: I&O/Vital Signs 04/22/22 04/22/22 04/22/22 04/22/22 06:00 07:00 07:00 07:46 Temp 36.4 Pulse 104 106 102 Resp 22 11 B/P (MAP) 121/91 134/82 Pulse Ox 91 96 O2 Delivery Room Air Room Air 04/22/22 04/22/22 04/22/22 04/22/22 08:00 08:00 09:00 10:00 Pulse 98 101 112 Resp 27 23 22 B/P (MAP) 133/78 138/92 129/100 Pulse Ox 98 91 93 91 O2 Delivery Room Air Room Air Room Air Room Air 04/22/22 04/22/22 04/22/22 04/22/22 11:00 11:49 12:00 12:00 Temp 36.7 Pulse 85 88 Resp 19 16 B/P (MAP) 130/80 104/90 Pulse Ox 92 98 97 O2 Delivery Room Air Room Air Room Air 04/22/22 04/22/22 04/22/22 04/22/22 12:39 13:00 14:00 15:00 Pulse 87 87 89 92 Resp 20 B/P (MAP) 104/81 105/84 118/79 Pulse Ox 96 94 94 O2 Delivery Room Air Room Air Room Air 04/22/22 04/22/22 04/22/22 16:00 16:12 17:14 Pulse 90 Resp 22 B/P (MAP) 128/84 Pulse Ox 99 98 O2 Delivery Room Air Room Air 04/22/22 00:00 Intake Total 2150 ml Output Total 3750 ml Balance -1600 ml Weight (Pounds): 330 Weight (Calculated Kilograms): 149.676860 Constitutional: AAO x 3, well-developed, well-nourished Respiratory: No accessory muscle use; other (fair air entry, diminished at the bases) Cardiovascular: regular rate-rhythm, S1 and S2, systolic murmur (soft JAIRO at card base) Gastrointestional: No tender; soft; No guarding, No rebound; audible bowel sounds Extremities: swelling (moderate, bilat leg edema); No clubbing, No cyanosis Skin: warm/dry, ulcerations (approx 4" tommie, maplike, superficial ulceration on the outer aspect of the L lower leg) Results/Procedures: Labs Laboratory Tests 04/22/22 04:32: White Blood Count 9.3, Red Blood Count 4.66, Hemoglobin 12.5, Hematocrit 40, Mean Corpuscular Volume 87, Mean Corpuscular Hemoglobin 27, Mean Corpuscular Hemoglobin Concent 31L, Red Cell Distribution Width 13.9, Platelet Count 249, Mean Platelet Volume 10.2, Immature Granulocyte % (Auto) 1, Neutrophils (%) (Auto) 58, Lymphocytes (%) (Auto) 31, Monocytes (%) (Auto) 8, Eosinophils (%) (A uto) 2, Basophils (%) (Auto) 0, Neutrophils # (Auto) 5.4, Lymphocytes # (Auto) 2.9, Monocytes # (Auto) 0.7, Eosinophils # (Auto) 0.2, Basophils # (Auto) 0.0, Immature Granulocyte # (Auto) 0.1, Sodium Level 141, Potassium Level 3.6, Chloride Level 108H, Carbon Dioxide Level 22, Anion Gap 11, Blood Urea Nitrogen 13, Creatinine 0.79, Estimat Glomerular Filtration Rate 92, BUN/Creatinine Ratio 16, Glucose Level 105, Calcium Level 8.9, Corrected Calcium 9.3, Phosphorus Level 2.9, Magnesium Level 1.9, Total Bilirubin 0.4, Aspartate Amino Transf (AST/SGOT) 24, Alanine Aminotransferase (ALT/SGPT) 15, Alkaline Phosphatase 88, Total Protein 6.6, Albumin 3.5 Microbiology 04/20/22 MRSA Screen - Final, Complete MRSA not isolated Laboratory Tests 04/20/22 18:50 04/21/22 04:50 04/22/22 04:32 A/P: Assessment: Ac inf wall STEMI on 04/20/22 - distal occlusion of the posterior descending branch of the RCA to which successful percutaneous intervention was carried out with Skypoint 2.5 x 12 mm stent; no significant CAD elsewhere CAD - Coronary artery disease primarily consisting of distal occlusion of the po sterior descending branch of RCA to which successful percutaneous intervention was carried out, following deployment of Skypoint 2.5 x 12 mm stent, there is no significant residual stenosis and the distal flow improved from RAFA 0 to RAFA. The rest of the coronary vessels do not exhibit significant disease. Normal global left ventricular systolic function with ejection fraction approximately 55% to 60%. Elevated left ventricular end-diastolic pressure (18 mmHg) PAF, by history - OAC with Eliquis Hypertension, by history Morbid obesity: BMI approx 73 Hyperlipidemia, treated with statin Plan: * S/P cardiac cath with successful coronary intervention * Continue current medication regimen including DAPT, BB, OAC and statin * Advise f/u as out pt with Dr. Ewing in 10 days Clinical Quality Measures AMI/AHF: ASA po Prior to arrival: Yes TAMMI JEAN MD FACP FAC CCDS Apr 22, 2022 18:04
--- NOTE | 2022-04-22 18:06 | Cardiology Discharge Summary ---
Diagnosis/Chief Complaint Date of Admission Apr 20, 2022 at 20:45 Date of Discharge Apr 22, 2022 at 17:10 Final/Discharge Diagnosis Ac inf wall STEMI on 04/20/22 - distal occlusion of the posterior descending branch of the RCA to which successful percutaneous intervention was carried out with Skypoint 2.5 x 12 mm stent; no significant CAD elsewhere CAD - Coronary artery disease primarily consisting of distal occlusion of the posterior descending branch of RCA to which successful percutaneous intervention was carried out, following deployment of Skypoint 2.5 x 12 mm stent, there is no significant residual stenosis and the distal flow improved from RAFA 0 to RAFA. The rest of the coronary vessels do not exhibit significant disease. Normal global left ventricular systolic function with ejection fraction approximately 55% to 60%. Elevated left ventricular end-diastolic pressure (18 mmHg) PAF, by history - OAC with Eliquis Hypertension, by history Morbid obesity: BMI approx 73 Hyperlipidemia, treated with statin Chief Complaint/HPI Chief Complaint/HPI CC: Chest pain 46 woman with sudden onset of chest pain at approx 6 pm today: midsternal, pressure-like, nonradiating, associated with feeling of anxiety, improved in the ER with iv morphine, not experienced before, w/o radiation. Chronic, exertional shortness of breath. No palp or syncope. Chronic, bilateral leg swelling. No syncope. H/o palpitations previously diagnosed as PAF Please refer to today's progress note for condition at discharge Discharge Summary Discussion & Recommendations Home Medications Reviewed patient Home Medication Reconciliation performed by pharmacy medication reconciliations farm equipment service technician and/or nursing. Patients Allergies have been reviewed. Discharge Home Medications: Reviewed and agree with Discharge Medication list on patient's Discharge Inst ruction sheet Clinical Quality Measures AMI/AHF: ASA po Prior to arrival: Yes TAMMI JEAN MD FACP FACC CCDS Apr 22, 2022 18:06
== END 2022-04-22 17:10 | disposition home or self-care (01) | DRG 247 ==
LOC: EDUNIT# 18:42 → ER 18:43 → CATH 18:56 → ICU 20:45
PROVIDERS: ADMIT Internal Medicine Cardiovascular Disease; ATTEND Internal Medicine Cardiovascular Disease
PROC: 027034Z Dilation of Coronary Artery, One Artery with Drug-eluting Intraluminal Device, Percutaneous Approach (ICD-10-PCS; principal; 2022-04-20)
PROC: 4A023N7 Measurement of Cardiac Sampling and Pressure, Left Heart, Percutaneous Approach (ICD-10-PCS; 2022-04-20)
PROC: B2111ZZ Fluoroscopy of Multiple Coronary Arteries using Low Osmolar Contrast (ICD-10-PCS; 2022-04-20)
PROC: B2151ZZ Fluoroscopy of Left Heart using Low Osmolar Contrast (ICD-10-PCS; 2022-04-20)
DX: I21.11 ST elevation (STEMI) myocardial infarction involving right coronary artery (principal); Z68.45 Body mass index [BMI] 70 or greater, adult; L03.116 Cellulitis of left lower limb; L97.821 Non-pressure chronic ulcer of other part of left lower leg limited to breakdown of skin; I50.9 Heart failure, unspecified; I25.10 Atherosclerotic heart disease of native coronary artery without angina pectoris; I11.0 Hypertensive heart disease with heart failure; I48.0 Paroxysmal atrial fibrillation; E66.01 Morbid (severe) obesity due to excess calories; E78.00 Pure hypercholesterolemia, unspecified; Z20.822 Contact with and (suspected) exposure to COVID-19; M79.7 Fibromyalgia; M19.90 Unspecified osteoarthritis, unspecified site; G89.29 Other chronic pain; M54.9 Dorsalgia, unspecified; F41.9 Anxiety disorder, unspecified; F32.A Depression, unspecified; R32 Unspecified urinary incontinence; Z82.49 Family history of ischemic heart disease and other diseases of the circulatory system
CPT/HCPCS: 36415; 51702; 71045; 80053; 80061; 82150; 82550; 82553; 83690; 83735; 83874; 83880; 84100; 84484; 84703; 85025; 85379; 85610; 85730; 87081; 87636; 93005; 93041; 93458; 93925

== ENCOUNTER → 2022-12-09 | Outpatient (CLI) | payer MEDICAID ==
[~2022-12-09] MED LIST changes: +APIX5TAB PO; +ASPI81TA64 PO; +ATOR40TA PO; +CHOL12502 PO; +CLOP75TA28 PO; +DOXY100T2 PO; +DULO60CA59 PO; +FURO40TA4 PO; +GABA300C PO; +HYDR-700 PO; +LISI5TAB20 PO; +MAGN250T13 PO; +METO-333 PO; +METO50TA7 PO; +POTA-51 PO; +ROSU10TA28 PO; +SODI475I IR; +TOPI50TA13 PO
== END ==
LOC: CARD 13:02
PROVIDERS: ATTEND Internal Medicine Cardiovascular Disease
DX: I11.9 Hypertensive heart disease without heart failure (principal); I34.0 Nonrheumatic mitral (valve) insufficiency; I25.10 Atherosclerotic heart disease of native coronary artery without angina pectoris
CPT/HCPCS: 93306

== ENCOUNTER → 2023-08-30 | Outpatient (CLI) | payer MEDICAID ==
[~2023-08-30] MED LIST changes: +CATHETER FLUSH 10 ML SYR IVP PRN; +POTA-330 PO; -POTA-51 PO; +REGADENOSON 0.4 MG/5 ML SYR IV ONE; +TOPI-241 PO; -TOPI50TA13 PO
[2023-08-30 09:23] VITALS: BP 127/82
--- NOTE | 2023-08-30 13:02 | Cardiology Stress Test Report ---
Stress Test Report Date of Procedure/Referring: Date of Procedure: Aug 30, 2023 PCP No,Local Physician Admitting Physician Admitting Physician: Attending Physician: Corinne Guzman MD Baseline Heart Rate: 81 Baseline Blood Pressure: Blood Pressure Systolic: 127 Blood Pressure Diastolic: 82 Baseline Vitals Vital Signs Date Time Temp Pulse Resp B/P (MAP) Pulse Ox O2 Delivery O2 Flow Rate FiO2 08/30/23 09:23 84 127/82 (97) Baseline EKG: Baseline EKG: NSR Summary After explaining the procedure to the patient, she signed a consent and then brought to the stress nuclear laboratory. Patient received 0.4 mg Lexiscan for stress test, ECG, heart rate and blood pressure were monitored continuously. Resting and stress dose of radio tracer were injected, imaging was acquired and reviewed in short axis, horizontal long axis and vertical long axis views. TID: 1.11 SSS: 21 SDS: 12 EF: 48 Patient tolerated Lexiscan well Large area of reversible ischemia involving the inferior wall inferolateral wall and apex, fixed defect at the basal to mid anterior wall Normal left ventricular size with preserved contractility, mild hypokinesia of the inferior wall, ejection fraction 48% CORINNE GUZMAN MD Aug 30, 2023 13:02
== END ==
LOC: CARD 08:15
PROVIDERS: ATTEND Internal Medicine Cardiovascular Disease
DX: I25.10 Atherosclerotic heart disease of native coronary artery without angina pectoris (principal); I10 Essential (primary) hypertension
CPT/HCPCS: 78452; 93017

== ENCOUNTER 2023-09-13 07:42 | Day surgery (SDC) | payer MEDICAID ==
[~2023-09-13] VITALS: Ht 160 cm; Wt 188.9 kg
[2023-09-13] VITALS (10 sets, daily range): BP systolic 103–162; BP diastolic 66–101
[~2023-09-13 07:42] MED LIST changes: -CATHETER FLUSH 10 ML SYR IVP PRN; -REGADENOSON 0.4 MG/5 ML SYR IV ONE
[2023-09-13] MEDS ORDERED: NS IV 1000 ML 1,000 ML IV SCH ×2 (07:45→10:15)
[2023-09-13] MEDS ORDERED: LIDOCAINE 1% INJ 20 ML VIAL ONE (08:23)
[2023-09-13] MEDS ORDERED: HEParin (CATH LAB) 2,000 ML IV ONE (08:24)
[2023-09-13] MEDS ORDERED: NS IV 1000 ML 1,000 ML ONE (08:24)
[2023-09-13 08:27] LABS: HEMATOCRIT 36 % (35-52); HEMOGLOBIN 11.9 g/dL (11.5-16.0); MEAN CORPUSCULAR HEMOGLOBIN 27 pg (25-34); MEAN CORPUSCULAR HGB CONC 33 g/dL (32-36); MEAN CORPUSCULAR VOLUME 81 fL (80-99); MEAN PLATELET VOLUME 8.5 fL (9.0-12.2); PLATELET COUNT 272 10^3/uL (130-400); WHITE BLOOD COUNT 8.6 10^3/uL (4.3-11.0)
--- NOTE | 2023-09-13 08:30 | Diagnostic Imaging Report ---
INDICATION: Respiratory distress. Study compared 04/20/2022 FINDINGS: The lungs are clear. There is no failure, effusion or pneumothorax. Elevated right diaphragm chronic. IMPRESSION: No acute appearing abnormality. Dictated by: Dictated on workstation # [id number]
[2023-09-13 08:40] LABS: INR 1.1 (0.8-1.4); PROTHROMBIN TIME PATIENT 14.6 SEC (12.2-14.7)
[2023-09-13 08:48] LABS: ALBUMIN 3.5 GM/DL (3.2-4.5); BILIRUBIN,TOTAL 0.5 MG/DL (0.1-1.0); CALCIUM 8.5 MG/DL (8.5-10.1); CREATININE SERUM 0.67 MG/DL (0.60-1.30); POTASSIUM 4.1 MMOL/L (3.6-5.0); TOTAL PROTEIN 6.3 GM/DL (6.4-8.2)
[2023-09-13] MEDS ORDERED: ONDA4TAB11 SL (09:13)
[2023-09-13] MEDS ORDERED: LORA-404 PO (09:13)
[2023-09-13] MEDS ORDERED: DICL20GE TP (09:13)
[2023-09-13] MEDS ORDERED: GABA-486 PO (09:13)
[2023-09-13] MEDS ORDERED: FEXO180T84 PO (09:13)
[2023-09-13] MEDS ORDERED: ASPI-1238 PO (09:13)
[2023-09-13] MEDS ORDERED: DESM0.2T29 PO (09:13)
[2023-09-13] MEDS ORDERED: MICO5POW6 TP (09:13)
[2023-09-13] MEDS ORDERED: SOLI10TA7 PO (09:13)
[2023-09-13] MEDS ORDERED: ACET-2650 PO (09:13)
[2023-09-13] MEDS ORDERED: APIX5TAB PO (09:13)
[2023-09-13] MEDS ORDERED: METO-333 PO (09:13)
[2023-09-13] MEDS ORDERED: IBUP-2473 PO (09:13)
[2023-09-13] MEDS ORDERED: ATOR40TA70 PO (09:13)
[2023-09-13] MEDS ORDERED: RAME8TAB24 PO (09:13)
--- NOTE | 2023-09-13 09:16 | Cardiac Procedure Note-CS/ASA ---
Pre-Procedure Note Pre-Op Procedure Note Date of Available H&P: Sep 04, 2023 Date H&P Reviewed: Sep 13, 2023 Time H&P Reviewed: 09:16 History & Physical: H&P Reviewed, Patient Examed, No changes noted Pre-Operative Diagnosis: CAD Moderate Sedation PreProcedure Time 09:16 ASA Score 3 Airway Lungs Heart ASA score ASA 1: a normal healthy patient ASA 2: a patient with a mild systemic disease (mid diabetes, controlled hypertension, obesity ASA 3: a patient with a severe systemic disease that limits activity (angina, COPD, prior Myocardial infarction) ASA 4: a patient with an incapacitating disease that is a constant threat to life (CHF, renal failure) ASA 5: a moribund patient not expected to survive 24 hrs. (ruptured aneurysm) ASA 6: a declared brain- patient whose organs are being harvested. For emergent operations, add the letter E after the classification Mallampati Classification Grade 3 Sedation Plan Analgesia, Amnesia, Plan communicated to team members, Discussed options with patient/fam, Discussed risks with patient/fam The patient is an appropriate candidate to undergo the planned procedure, sedation, and anesthesia. The patient immediately re-assessed prior to indication. CORINNE SULLIVAN MD Sep 13, 2023 09:16
[2023-09-13] MEDS ORDERED: POTA-177 PO (09:20)
[2023-09-13] MEDS ORDERED: PANT40TA52 PO (09:20)
[2023-09-13] MEDS ORDERED: MIDAZOLAM INJ 5 MG/5 ML VIAL ONE (09:24)
[2023-09-13] MEDS ORDERED: NITRO DRIP 25000 MCG/D5W 0 ML IV ONE (09:24)
[2023-09-13] MEDS ORDERED: HEParin 1000 UNIT/ML (10ML VIAL) FOR BOLUS ONE (09:24)
[2023-09-13] MEDS ORDERED: fentaNYL INJECTION 100 MCG/2 ML VIAL ONE (09:24)
[2023-09-13] MEDS ORDERED: VERAPAMIL 5 MG/2 ML (CALAN) VIAL IV ONE (09:24)
[2023-09-13] MEDS ORDERED: PATIENT MAY USE OWN MEDS, ALL PO SCH (10:15)
--- NOTE | 2023-09-13 10:16 | Discharge Inst-Post CATH ---
Discharge Inst-CATH/EP Problems Reviewed?: Yes Post Cardiac Cath/EP D/C Inst Follow Up/Plan Appointment with Dr. Guzman's office in 2 to 4 weeks <b>CARDIAC CATH/EP PROCEDURE DISCHARGE INSTRUCTIONS</b> ACTIVITY * Go Home directly and rest. * Limit activity of the leg (or wrist if it was used) for 7 days including aer obics, swimming, jogging, bicycling, etc. * Restrict stair-climbing for 7 days if possible, if not, climb up with your non-cath leg, then bring together on the same step. * Avoid lifting, pushing, pulling or excessive movement of the affected extremi ty for 7 days. * Customary sexual activity may be resumed after 2 days-use caution not to use a position that strains or causes pain to the affected extremity. * No driving for 24 hours. * NO SMOKING. * Avoid straining for bowel movements for 7 days. * Gentle walking on level ground is allowed. * Returning to work will depend on the type of procedure and the results. Your doctor will discuss this with you. CALL YOUR DOCTOR FOR ANY OF THE FOLLOWING: *If bleeding from the puncture site occurs- Apply gentle pressure to site with clean cloth and call your doctor or EMS. * If a knot or lump forms under the skin, increases in size, or causes pain. * If bruising appears to be worsening or moving further down your leg instead of disappearing. * Temperature above 101 F. CARE OF YOUR GROIN INCISION; * Bruising or purple discoloration of the skin near the puncture site is common. * You may shower only, no bathtub bathing for 5 days. Be careful to avoid slipping as your leg may feel stiff. * If a closure device was used on your femoral artery, please see the attached guide regarding care of the device and your leg. * Leave dressing on FOR 24 hours. CARE OF YOUR WRIST INCISION; * Bruising or purple discoloration of the skin near the puncture site is common. * You may shower. * DO NOT submerge wrist. * Leave dressing on FOR 24 hours. CORINNE GUZMAN MD Sep 13, 2023 10:16
--- NOTE | 2023-09-13 10:18 | Cardiac Cath Report ---
Cardiac Cath Report Physician (s)/[place] Nurse (s) Physician CORINNE SULLIVAN MD Pre-Procedure Diagnosis Pre-Procedure Diagnosis: CAD Post-Procedure Note Procedure Start Date: Sep 13, 2023 Name of Procedure: Left heart catheterization Findings/Procedure Note PROCEDURE NOTE: 48 years old lady with recurrent chest pain, multiple risk factors for coronary artery disease, had an abnormal stress test, cardiac catheterization was advised. After explaining the procedure to the patient, all pros and cons were explained, all questions were answered. The patient signed the consent and then she was placed in the cardiac catheterization laboratory. Groin was prepped in SL fashion local anesthesia was used. Sheath placed in the right femoral artery. Tan' right and left catheter were used to access the coronary system. Tan right was prolapsed to the left ventricular cavity, pressure was measured, pullback LV to aorta was done. At the end of the procedure the sheath was removed. Closure device was deployed FINDINGS: Hemodynamics LV 137/18, end-diastolic pressure of 18 Aorta 127/67 mean of 89 ANATOMY: Left Main is free of obstructive disease Left Anterior Descending is free of obstructive disease Left Circumflex is nondominant with no obstructive disease Right Coronary Artery is dominant artery with no obstructive disease LV Gram was not done, pressure was measured CONCLUSION: Dominant right coronary system with no significant obstructive disease Normal left ventricular end-diastolic pressure Abnormal stress test is probably due to extracardiac attenuation DISCUSSION AND RECOMMENDATION: Continue to maximize medical therapy Anesthesia Type: Conscious Sedation Estimated blood loss (mL): 10 ml Contrast Amount: 44 ml Total Radiation Dose: 631 mGy Post-Procedure Diagnosis Post-operative diagnosis: Chest pain Hypertension Hyperlipidemia Obesity CORINNE SULLIVAN MD Sep 13, 2023 10:18
[2023-09-13] MEDS ORDERED: ACETAMINOPHEN 325 MG TABLET PO ONE (11:15)
[2023-09-13] MEDS ORDERED: ACETAMINOPHEN 325 MG TABLET ONE (11:18)
== END 2023-09-13 15:05 | disposition home or self-care (01) ==
LOC: CATH 07:42 → SDC 10:34 → CATH 15:05
PROVIDERS: ATTEND Internal Medicine Cardiovascular Disease
DX: I25.10 Atherosclerotic heart disease of native coronary artery without angina pectoris (principal); I11.9 Hypertensive heart disease without heart failure; E78.5 Hyperlipidemia, unspecified; R94.39 Abnormal result of other cardiovascular function study; I34.0 Nonrheumatic mitral (valve) insufficiency; I48.0 Paroxysmal atrial fibrillation; E78.2 Mixed hyperlipidemia; K21.9 Gastro-esophageal reflux disease without esophagitis; E66.01 Morbid (severe) obesity due to excess calories; E66.9 Obesity, unspecified; Z87.891 Personal history of nicotine dependence; Z95.5 Presence of coronary angioplasty implant and graft; Z68.45 Body mass index [BMI] 70 or greater, adult; Z79.82 Long term (current) use of aspirin; Z79.01 Long term (current) use of anticoagulants; Z79.899 Other long term (current) drug therapy
CPT/HCPCS: 36415; 71045; 80053; 80061; 85027; 85610; 85730; 87081; 93005; 93458